=== PATIENT | male | born 1955 | race African-American/Black ===

== ENCOUNTER 2019-03-12 23:36 | Inpatient (IN) | payer SELFPAY ==
[2019-03-13] MEDS ORDERED: Carvedilol 25 MG TAB PO SCH (00:30)
[2019-03-13] MEDS ORDERED: Acetaminophen 325 MG TAB ONE (02:08)
[2019-03-13 02:42] VITALS: BMI 29.1
[2019-03-13] MEDS ORDERED: Acetaminophen 325 MG TAB PO PRN (02:55)
[2019-03-13] MEDS ORDERED: Ondansetron PF 4 MG/2 ML Vial IVP PRN (02:55)
[2019-03-13] MEDS ORDERED: Ondansetron ODT 4 MG TAB SL PRN (02:55)
[2019-03-13 03:56] LABS: Troponin I 0.057 ng/mL (< 0.028)
--- NOTE | 2019-03-13 03:59 | HP ---
CHIEF COMPLAINT: Shortness of breath. PRIMARY CARE PHYSICIAN: [facility]. HISTORY OF PRESENT ILLNESS: The patient is a 63-year-old male with congestive heart failure, cirrhosis with ongoing alcohol abuse and medication noncompliance, presented to the emergency room at [place] with above complaints. He was transferred to this facility for hospital admission. Over the last 3-4 weeks, the patient has gradual worsening shortness of breath, mainly on mild to moderate exertion. His symptoms progressively got worse today. He was unable to lie down flat. He also noticed significant swelling in bilateral lower extremities. No chest pain, palpitations, lightheadedness, dizziness, or syncope reported. He also had some cough, which was essentially dry. He does not monitor his fluid intake. He also does not check his weight on a daily basis. The patient is currently out of all of his medications for more than a month or so. In the emergency room at [place], his initial vital signs showed temperature 98.3 respirations of 16, pulse rate of 119 with a blood pressure 133/96, and O2 saturation 94% on room air. He received aspirin with Lasix in the emergency room at [place] and was transferred to this facility. PAST MEDICAL HISTORY: 1. Hypertension. 2. Congestive heart failure, ejection fraction unknown. 3. Alcoholic cirrhosis. PAST SURGICAL HISTORY: Reviewed with the patient and none. ALLERGIES: NO KNOWN DRUG ALLERGIES. CURRENT HOME MEDICATIONS: The patient is out of all of his medications for a month. SOCIAL HISTORY: The patient drinks a mild amount of alcohol on a daily basis per the patient report. He is trying to quit drinking. No smoking or drug use. FAMILY HISTORY: Mother with heart disease. Sister with bladder cancer. REVIEW OF SYSTEMS: All other review of systems were reviewed and were found negative. PHYSICAL EXAMINATION: VITAL SIGNS: As discussed above. GENERAL: The patient in mild respiratory distress. HEENT: Head, atraumatic and normocephalic. Sclerae anicteric. Moist mucous membranes. No oral lesion. NECK: Supple. JVD elevated. No carotid bruit. LUNGS: Showed bibasilar rales with accessory muscle use. No significant wheezing noted. Lungs were symmetrical. HEART: S1, S2 present. Regular rate and rhythm. 2/6 systolic murmur over the mitral area as well as left lateral sternal border. No heaves or pulsation. ABDOMEN: Distended, soft. Bowel sounds present. Questionable shifting dullness. EXTREMITIES: 2 to 3+ edema in bilateral lower extremities. SKIN: Warm and dry. LYMPH NODES: No palpable lymph nodes in the neck. PERIPHERAL VASCULAR: Radial pulses palpable bilaterally. MUSCULOSKELETAL: No joint swelling or tenderness. SKIN: Warm and dry. LABORATORY FINDINGS: CBC showed WBC 5.1 with hemoglobin 13.4, hematocrit 44.2, platelets 250. PT of 16.4, INR 1.3. D-dimer was 2.83. Chemistry showed sodium 140, potassium 3.5, chloride 103, bicarb 24, BUN 11, creatinine 1.12. Troponin 0.039. BNP 1041. Plasma alcohol was 15. EKG by my review showed sinus rhythm with nonspecific ST-T wave changes. CT angiogram of the chest by my review showed small bilateral pleural effusion without any evidence of pulmonary embolism. There was pulmonary edema with cardiomegaly. IMPRESSION: 1. Acute on chronic congestive heart failure exacerbation/pulmonary edema, ACC stage C. 2. Medication noncompliance. 3. Alcoholic cirrhosis. 4. Hypertension. 5. Chronic alcoholism. 6. Chronic kidney disease, stage 2. 7. Type 2 myocardial infarction. 8. Abnormal LFTs secondary to cirrhosis/passive hepatic congestion. 9. Elevated D-dimer with negative CT angiogram of the chest for pulmonary embolism. PLAN: The patient will be monitored on the telemetry unit. The patient will require 2 to 3 days for stabilization given the extent of volume overload. We will add fluid restriction. IV diuretics. We will add thiamine, folic acid, multivitamin. We will resume beta blockers. Start potassium supplementation. The patient was extensively counseled to quit drinking. Multivitamin, thiamine, and folic acid will be added. Labs on a daily basis. Echocardiogram will be obtained. Plan of care was discussed with the patient in detail. He stated understanding. Job ID: [id number]
[2019-03-13] MEDS: Furosemide 40 MG/4 ML VIAL SLOW IVP SCH ×2 (06:00→14:20)
--- NOTE | 2019-03-13 07:39 | CT ---
PRELIMINARY REPORT/[facility]/EMERGENCY AFTER HOURS PROCEDURE: EXAM: CT Angiography Chest With Contrast EXAM DATE/TIME: 03/13/2019 12:31 AM CLINICAL HISTORY: 63 years old, male; Dyspnea and shortness of breath; Patient HX: 63 y/o m, presents to eded for chf. PT was prompted to go to other ED for evaluation of worsening x 1 month of dyspnea, ble edema. He also notes abd distension. Denies cp TECHNIQUE: Imaging protocol: Axial computed tomographic angiography images of the chest with intravenous contras t using CT angiography protocol. 3D rendering: MIP reconstructed images were created and reviewed. COMPARISON: No relevant prior studies available. FINDINGS: Pulmonary arteries: No evidence of pulmonary embolism. Aorta: No acute findings. No aortic aneurysm or dissection. Lungs: Bilateral interlobular septal and peribronchial thickening likely represents pulmonary edema. Bibasilar atelectasis. Few scattered small pulmonary nodules for instance right upper lobe peripheral 5 mm nodule. Pleural space: Small right and trace left pleural effusions. No pneumothorax. Heart: Cardiomegaly. Coronary calcifications. No pericardial effusion. Reflux of contrast into the IV C and hepatic veins suggestive of heart strain. Mediastinum: Small hiatal hernia. Upper abdomen: Mild ascites. Lymph nodes: No significant adenopathy. Bones/joints: No acute fracture. Soft tissues: Body wall edema. IMPRESSION: No evidence of pulmonary embolism. Pulmonary edema. Small pleural effusions. No ascites. Cardiomegaly. Coronary calcifications. Other findings above. Thank you for allowing us to participate in the care of your patient. Dictated and Authenticated by: Lino Grider MD 03/13/2019 1:45 AM Central Time ([place] & [place]) FINAL REPORT CT PULMONARY ANGIOGRAM WITH IV CONTRAST AND 3-D POSTPROCESSING: I agree with the preliminary report given by Dr. Grider of [facility]. Transcribed Date/Time: 03/13/2019 7:53 AM
[2019-03-13] MEDS ORDERED: Sodium Chloride 0.65% Nasal 44 ML BOT EA NARE PRN (07:43)
[2019-03-13] MEDS ORDERED: Temazepam 15 MG CAP PO PRN (07:43)
[2019-03-13] MEDS ORDERED: Bisacodyl 10 MG SUPP PR PRN (07:43)
[2019-03-13] MEDS ORDERED: Loperamide HCl 2 MG CAP PO PRN (07:43)
[2019-03-13] MEDS ORDERED: Calcium Carbonate 500 MG ChewTAB PO PRN (07:43)
[2019-03-13] MEDS ORDERED: hydrALAZINE 20 MG/ML VIAL SLOW IVP PRN (07:43)
[2019-03-13] MEDS ORDERED: Artificial Tears 18 DROP/0.9 ML EA EYE PRN (07:43)
[2019-03-13] MEDS ORDERED: Loratadine 10 MG TAB PO PRN (07:43)
[2019-03-13] MEDS: Thiamine 100 MG TAB PO SCH (08:40)
[2019-03-13] MEDS: Magnesium Oxide 400 MG TAB PO SCH ×2 (08:40→20:41)
[2019-03-13] MEDS: Potassium Chloride 20 MEQ TAB PO SCH ×2 (08:40→16:37)
[2019-03-13] MEDS: Folic Acid 1 MG TAB PO SCH (08:40)
[2019-03-13] MEDS: Aspirin Chewable 81 MG TAB PO SCH (08:41)
[2019-03-13] MEDS: Senokot S 8.6-50 MG TAB PO SCH ×2 (08:41→20:46)
[2019-03-13] MEDS: Famotidine 20 MG TAB PO SCH ×2 (08:41→20:41)
[2019-03-13] MEDS: Multivit, Therapeutic 1 TAB PO SCH (08:41)
[2019-03-13] MEDS ORDERED: Lisinopril 2.5 MG TAB PO SCH (09:00)
[2019-03-13] MEDS ORDERED: Carvedilol 6.25 MG TAB PO SCH ×2 (09:00)
[2019-03-13] MEDS ORDERED: ISOVUE-370 76%-LOCM 1 ML ONE (11:12)
[2019-03-13 12:36] LABS: Anion Gap 13 mmol/L (10-20); BUN (Urea Nitrogen) 11 mg/dL (8.4-25.7); Calc. Creatinine Clearance 106 mL/min (70-130); Calcium 8.8 mg/dL (7.8-10.44); Carbon Dioxide 24 mmol/L (23-31); Chloride 106 mmol/L (98-107); Estimated GFR-MDRD 82; Glucose 116 mg/dL (80-115); Magnesium 1.9 mg/dL (1.6-2.6); Sodium 139 mmol/L (136-145)
--- NOTE | 2019-03-13 14:04 | PDOC.EVN ---
Event Note - Event Note Event Note: Pt seen & examined.feels dizzy Care discussed w RN at bedside. BP low after receiving lasix this am will hold lasix for now and DC Lisinopril.Put Hold parameters on coreg as well Add ASE protocol. cont Thiamine/FA supplementation ECHO pending to assess cardiac Fx High risk of Alcohol withdrawal. AM labs. ETOH counselling done. discussed w family at bedside
[2019-03-13] MEDS: Carvedilol 6.25 MG TAB PO SCH (20:47)
[2019-03-13] MEDS: Diabetic Tussin 200 MG/10 ML UDCUP PO PRN (22:50)
[2019-03-14 06:46] LABS: ALT (SGPT) 17 U/L (8-55); AST (SGOT) 26 U/L (5-34); Albumin 2.9 g/dL (3.4-4.8); Alkaline Phosphatase 107 U/L (40-150); Bilirubin, Direct 0.9 mg/dL (0.1-0.3); Bilirubin, Total 1.7 mg/dL (0.2-1.2); Phosphorus 3.3 mg/dL (2.3-4.7); Protein, Total 6.4 g/dL (5.8-8.1)
[2019-03-14 06:48] LABS: Anion Gap 13 mmol/L (10-20); BUN (Urea Nitrogen) 12 mg/dL (8.4-25.7); Calc. Creatinine Clearance 110 mL/min (70-130); Calcium 8.6 mg/dL (7.8-10.44); Carbon Dioxide 23 mmol/L (23-31); Chloride 106 mmol/L (98-107); Estimated GFR-MDRD 87; Glucose 79 mg/dL (80-115); Magnesium 1.8 mg/dL (1.6-2.6); Sodium 138 mmol/L (136-145); Uric Acid 8.5 mg/dL (3.5-7.2)
[2019-03-14] MEDS: Potassium Chloride 20 MEQ TAB PO SCH ×2 (07:47→16:25)
[2019-03-14] MEDS: Aspirin Chewable 81 MG TAB PO SCH (09:50)
[2019-03-14] MEDS: Carvedilol 6.25 MG TAB PO SCH (09:50)
[2019-03-14] MEDS: Thiamine 100 MG TAB PO SCH (09:50)
[2019-03-14] MEDS: Famotidine 20 MG TAB PO SCH ×2 (09:50→21:01)
[2019-03-14] MEDS: Folic Acid 1 MG TAB PO SCH (09:50)
[2019-03-14] MEDS: Magnesium Oxide 400 MG TAB PO SCH ×2 (09:50→21:01)
[2019-03-14] MEDS: Multivit, Therapeutic 1 TAB PO SCH (09:50)
[2019-03-14] MEDS: Senokot S 8.6-50 MG TAB PO SCH ×2 (09:51→21:00)
[2019-03-14] MEDS ORDERED: Lorazepam 2 MG/ML VIAL SLOW IVP PRN (10:46)
--- NOTE | 2019-03-14 10:46 | PDOC.PN ---
- Subjective Encounter Start Date: 03/14/19 Encounter Start Time: 10:43 Patient seen and examined, complaining of SOB and dyspnea on exhertion. No other issues. - Objective Resuscitation Status - Order Detail: 03/13/19 03:45 Resuscitation Status Routine Resuscitation Status: FULL: Full Resuscitation Vital Signs & Weight: Vital Signs (12 hours) Temp Pulse Resp BP BP Pulse Ox 03/14/19 09:50 111/81 03/14/19 08:30 94 L 03/14/19 08:00 115/76 115/76 03/14/19 07:38 97.8 F 84 16 115/84 100 03/14/19 07:33 94 L 03/14/19 04:00 97.7 F 89 16 104/73 95 03/14/19 03:27 104/73 03/14/19 00:07 111/79 03/14/19 00:00 97.7 F 90 16 111/79 96 Weight Weight 232 lb 11.2 oz I&O: 03/13/19 03/14/19 03/15/19 06:59 06:59 06:59 Intake Total 240 960 140 Output Total 1550 Balance 240 -590 140 Result Diagrams: 03/14/19 06:07 Phys Exam - Physical Examination Constitutional: NAD HEENT: PERRLA, moist MMs, sclera anicteric Neck: no nodes, no JVD, supple Respiratory: no wheezing, no rales, no rhonchi Cardiovascular: RRR, no significant murmur, no rub Gastrointestinal: soft, non-tender, no distention Musculoskeletal: pulses present, edema present Dx/Plan (1) Systolic CHF Code(s): I50.20 - UNSPECIFIED SYSTOLIC (CONGESTIVE) HEART FAILURE Status: Acute (2) Acute on chronic congestive heart failure Code(s): I50.9 - HEART FAILURE, UNSPECIFIED Status: Acute Comment: ACC/AHA stage C, suspecting diastolic (3) Alcoholic cirrhosis of liver Code(s): K70.30 - ALCOHOLIC CIRRHOSIS OF LIVER WITHOUT ASCITES Status: Chronic (4) Alcoholism /alcohol abuse Code(s): F10.20 - ALCOHOL DEPENDENCE, UNCOMPLICATED Status: Chronic (5) Nonadherence to medication Code(s): Z91.14 - PATIENT'S OTHER NONCOMPLIANCE WITH MEDICATION REGIMEN Status : Chronic - Plan * worsening edema and SOB subjectively, patint appears stable now, able to tolerate room air and oxygenating well * will consult cardio, EF 10-15%, very low, likely from CHF due to chronic alcoholic cardiomyopathy * patient continues to drink heavily, last drink was 4 days ago, not showing signs of withdrawals, will monitor for now, PRN ativan if he does have withdrawals * will avoid aggressive IVFs given such poor cardiac function * monitor for now, will await cardio input * no other changes in plan of care * prognosis poor * case and plan d/w patient at length, he understood and agreed with this plan.
[2019-03-14] MEDS ORDERED: Furosemide 20 MG/2 ML VIAL SLOW IVP SCH ×2 (14:45→18:30)
--- NOTE | 2019-03-14 15:13 | CON ---
DATE OF CONSULTATION: 03/14/2019 REASON FOR CONSULTATION: New-onset cardiomyopathy. HISTORY OF PRESENT ILLNESS: Mr. Mckeon is a 63-year-old gentleman, who comes to the hospital for shortness of breath. He states for the last 4 to 5 days, he has been so short of breath he cannot drink his alcohol any more. He is normally drinking about 12 cans of beers a day, but he had to stop 4 days ago as he was so bloated. He has been told he has cirrhosis in the past. He does not remember being told that he had a weak heart, but he knows that he was admitted in the [facility] where he used to live and was told he had issues with his heart, but he cannot really elaborate. He states that he moved to the [facility] about 4 to 5 years ago and has not seen a doctor since. He works for home health. Currently, he is feeling a little bit better. He is breathing a little more comfortable. His legs swelling has decreased after given some doses of IV Lasix. PAST MEDICAL HISTORY: 1. Hypertension. 2. History of congestive heart failure of unknown type. 3. Alcoholic cirrhosis. PAST SURGICAL HISTORY: None. OUTPATIENT MEDICATIONS: None. ALLERGIES: NO KNOWN DRUG ALLERGIES. SOCIAL HISTORY: Drinks about 12 cans of beer every day. No tobacco or drugs. FAMILY HISTORY: Mother with heart disease. Sister with bladder cancer. REVIEW OF SYSTEMS: A 12-point review of systems was done and was all negative unless stated in the history of present illness. PHYSICAL EXAMINATION: VITAL SIGNS: Temperature 97.6, pulse 89, respiratory rate 15, saturations 96% on room air, and blood pressure 103/75. GENERAL: Awake, alert, oriented x3. No distress. HEENT: Normocephalic, atraumatic. NECK: Supple. LUNGS: Clear. CARDIOVASCULAR: S1 and S2. No S3 or S4. There is a grade 2/6 systolic murmur at the right upper sternal border. ABDOMEN: Positive with ascitic wave. EXTREMITIES: 1+ edema. SKIN: Warm and dry. LABORATORY DATA: Laboratory work was reviewed, it shows CBC with a white count of 5, hemoglobin of 13, hematocrit 44, platelet count of 250. Coags were unremarkable. Chemistries were unremarkable except for uric acid of 8.5, glucose was 79. Troponin is in the indeterminate range at 0.03, 0.05, and 0.03. BNP was 1041. Total bilirubin was 1.3, direct bilirubin was 0.9, and total bilirubin has increased to 1.5. Albumin of 2.9. Plasma alcohol was 15. He states he has last drink 4 days before admission. Echocardiogram was reviewed, it showed an EF of 10% to 15%, grade 3/3 diastolic dysfunction, biatrial enlargement [id number] mitral regurgitation, severe tricuspid regurgitation, large pleural effusion. CT of the chest was reviewed. Chest x-ray was reviewed. ASSESSMENT: 1. Acute on chronic systolic heart failure. 2. Alcohol abuse. 3. Noncompliance. PLAN: 1. Most likely the reason for his cardiomyopathy is alcohol use. He does have coronary calcifications on CT and may need a heart catheterization in the near future. However, at this time, he is unable to lay flat because of the amount of fluid still inside his belly. We will plan on continuing IV diuresis at current dose. He is slowly improving. 2. Counseled on alcohol cessation. He states he is trying to quit. 3. Once better diuresed and if blood pressure and heart rate allow, we will start beta-nkechi and PRASANTH inhibitors. Currently, his blood pressure is borderline low. He is already on Coreg 3.125, but this is being held more often than not given low blood pressure. Thank you for letting me to participate in the care of your patient. We will continue to follow. Job ID: [id number]
[2019-03-14] MEDS: DOBUTamine 500 mg/250 ml 250 ML IVPB SCH (17:14)
[2019-03-15] MEDS: Furosemide 40 MG/4 ML VIAL SLOW IVP SCH ×2 (06:32→13:20)
[2019-03-15 07:08] LABS: Anion Gap 11 mmol/L (10-20); BUN (Urea Nitrogen) 13 mg/dL (8.4-25.7); Calc. Creatinine Clearance 112 mL/min (70-130); Calcium 8.7 mg/dL (7.8-10.44); Carbon Dioxide 25 mmol/L (23-31); Chloride 106 mmol/L (98-107); Estimated GFR-MDRD Greater than 90; Glucose 80 mg/dL (80-115); Magnesium 1.7 mg/dL (1.6-2.6); Potassium 3.9 mmol/L (3.5-5.1); Sodium 138 mmol/L (136-145)
[2019-03-15] MEDS: Famotidine 20 MG TAB PO SCH ×2 (08:26→20:31)
[2019-03-15] MEDS: Senokot S 8.6-50 MG TAB PO SCH ×2 (08:26→20:31)
[2019-03-15] MEDS: Aspirin Chewable 81 MG TAB PO SCH (08:26)
[2019-03-15] MEDS: Folic Acid 1 MG TAB PO SCH (08:26)
[2019-03-15] MEDS: Multivit, Therapeutic 1 TAB PO SCH (08:26)
[2019-03-15] MEDS: Potassium Chloride 20 MEQ TAB PO SCH ×2 (08:26→20:31)
[2019-03-15] MEDS: Magnesium Oxide 400 MG TAB PO SCH ×2 (08:26→20:31)
[2019-03-15] MEDS: Thiamine 100 MG TAB PO SCH (08:27)
[2019-03-15] MEDS: DOBUTamine 500 mg/250 ml 250 ML IVPB SCH (08:29)
--- NOTE | 2019-03-15 13:56 | PRG ---
DATE OF SERVICE: 03/15/2019 SUBJECTIVE: The patient is seen and examined at the bedside. He states that he is feeling much better. He is able to eat. His shortness of breath improved and the swelling of his lower extremities improved too according to him. OBJECTIVE: VITAL SIGNS: Blood pressure is 123/78, pulse is 96, respirations 18, O2 saturation is 99% on room air, temperature is 97.7. HEENT: His head is atraumatic and normocephalic. Eyes are PERRLA. Sclerae are slightly icteric. Oral mucosa is moist. NECK: Supple. LUNGS: Breath sounds diminished at both bases with bilateral crackles at both bases. No wheezing. No rales. HEART: S1 and S2, somewhat distant. No S3. No S4. ABDOMEN: Soft. Somewhat distended with some fluid present. No organomegaly. EXTREMITIES: 2+ peripheral edema, similar bilaterally on both lower extremities. NEUROLOGIC: He follows my commands. He moves his all 4 extremities. There are no any motor deficits. LABORATORY DATA: Normal chemistry. Magnesium 1.7. Echocardiogram showed severe LV dysfunction with EF estimated at 10% to 15%, grade 3/3 diastolic dysfunction, global hypokinesia, moderately dilated left atrium, moderately enlarged right atrium, [id number] mitral regurgitation, severe tricuspid regurgitation, and pleural effusion. IMPRESSION: 1. Combined systolic and diastolic congestive heart failure with left ventricular ejection fraction estimated at 10% to 15%. 2. Alcoholic liver cirrhosis. 3. Alcoholism. 4. Noncompliance. The patient has seen a physician long time ago. DISCUSSION: The patient is receiving dobutamine drip. I will do ultrasound of his abdomen for ascites and tap him if he has enough fluid to be tapped, so Dr. Benitez can do cardiac catheterization on him to rule out ischemic heart disease. At this point, the diagnosis is alcoholic heart disease until proven otherwise. We will continue his Lasix IV push 40 mg twice a day and p.r.n. Ativan for his alcohol withdrawal syndromes. He stopped drinking approximately 4 to 5 days ago, so he is in increased risk for that was canceled on his alcoholism and he states that he has done with alcohol since he got somewhat damage on his heart. Continue DVT prophylaxis. Job ID: [id number]
--- NOTE | 2019-03-15 15:14 | PDOC.CTH ---
Cardiology Progress Note - Subjective Doing better. Urinating better with dobutamine. - Objective Vital Signs Temp Pulse Pulse Pulse Resp BP BP 03/15/19 12:18 107 H 102 H 134/82 03/15/19 11:51 97.7 F 96 18 03/15/19 08:00 98.1 F 99 18 126/64 03/15/19 04:00 138/81 BP BP Pulse Ox 03/15/19 12:18 98/62 03/15/19 11:51 123/78 99 03/15/19 08:00 110/75 98 03/15/19 04:00 Weight 221 lb 12.8 oz 03/14/19 03/15/19 03/16/19 06:59 06:59 06:59 Intake Total 960 1545 580 Output Total 1550 975 Balance -590 570 580 - Physical Examination General/Neuro: alert & oriented x3, NAD Neck: no JVD present Lungs: unlabored respirations Heart: RRR Abdomen: NT/ND Extremities: + edema B (trace) - Telemetry Telemetry Rhythm: NSR - Labs Result Diagrams: 03/15/19 06:26 Troponin/CKMB Troponin I 0.057 ng/mL (< 0.028) H 03/13/19 03:25 - Assessment/Plan 1. New onset dilated CM. EF at 10-15% 2. Alcohol abuse 3. Non compliance. 4. Coronary calcifications on CT. PLAN: - Continue dobutamine and lasix for diuresis. - Will need [facility] before discharge once he is able to lay flat.
[2019-03-16] MEDS: DOBUTamine 500 mg/250 ml 250 ML IVPB SCH ×2 (00:34→18:19)
[2019-03-16] MEDS: Furosemide 40 MG/4 ML VIAL SLOW IVP SCH ×2 (05:10→15:11)
[2019-03-16 05:14] LABS: Anion Gap 12 mmol/L (10-20); BUN (Urea Nitrogen) 13 mg/dL (8.4-25.7); Calc. Creatinine Clearance 107 mL/min (70-130); Calcium 8.3 mg/dL (7.8-10.44); Carbon Dioxide 26 mmol/L (23-31); Chloride 105 mmol/L (98-107); Estimated GFR-MDRD 89; Glucose 84 mg/dL (80-115); Magnesium 1.7 mg/dL (1.6-2.6); Potassium 3.7 mmol/L (3.5-5.1); Sodium 139 mmol/L (136-145)
--- NOTE | 2019-03-16 07:23 | ULT ---
COMPLETE ABDOMEN ULTRASOUND: Date: 03/16/19 INDICATION: History of liver cirrhosis. COMPARISON: None. FINDINGS: The liver does have increased echogenicity with a nodular contour consistent with changes of chronic liver disease. No focal hepatic lesion is evident. There is mild gallbladder wall thickening and lilly cholecystic edema which may be related to patient's history of cirrhosis. No sonographic Monge's sig n is reported. Common bile duct measures 4 mm. There is appropriate hepatopetal flow within the portal vein. Focal flow is seen in the hepatic veins . Pancreas is largely obscured. Visualized proximal aorta and IVC are within normal limits. The splee n measures 10.3 cm. The right kidney measures 12.6 x 5.1 x 6.7 cm. The left kidney measures 12.5 x 6.2 x 4.8 cm. There is mild ascites seen around the right hepatic lobe. IMPRESSION: 1. Findings of cirrhosis and mild ascites. 2. Mild gallbladder wall thickening and pericholecystic edema, may be related to lymphedema from the patient's chronic liver disease. No sonographic Monge's sign is seen to suggest the presence of acu te acalculous cholecystitis. 3. Some limitations to exam as above. POS: BRANDI
[2019-03-16] MEDS: Senokot S 8.6-50 MG TAB PO SCH ×2 (08:30→20:36)
[2019-03-16] MEDS: Multivit, Therapeutic 1 TAB PO SCH (08:30)
[2019-03-16] MEDS: Potassium Chloride 20 MEQ TAB PO SCH ×2 (08:30→18:20)
[2019-03-16] MEDS: Aspirin Chewable 81 MG TAB PO SCH (08:30)
[2019-03-16] MEDS: Folic Acid 1 MG TAB PO SCH (08:31)
[2019-03-16] MEDS: Thiamine 100 MG TAB PO SCH (08:31)
[2019-03-16] MEDS: Magnesium Oxide 400 MG TAB PO SCH ×2 (08:31→20:36)
[2019-03-16] MEDS: Famotidine 20 MG TAB PO SCH ×2 (08:31→20:36)
--- NOTE | 2019-03-16 13:57 | PRG ---
DATE OF SERVICE: 03/16/2019 SUBJECTIVE: The patient is seen and examined at the bedside. He is improving in terms of his shortness of breath and being tired. His appetite is fair. OBJECTIVE: VITAL SIGNS: Blood pressure is 114/73, pulse is 99, temperature is 97.9, respirations 18, and O2 saturation is 98% on room air. HEENT: His head is atraumatic and normocephalic. Eyes are PERRLA. Sclerae are slightly icteric. Conjunctivae somewhat palish. Oral mucosa is moist. NECK: Supple. LUNGS: Breath sounds diminished at both bases with some bilateral crackles. HEART: S1 and S2, somewhat distant. S4 present. ABDOMEN: Soft. Mildly distended with small amount of fluid. No guarding. No masses. EXTREMITIES: 1 to 2+ peripheral edema similar bilaterally on both lower extremities. NEUROLOGIC: He is alert and oriented x4. There are no any motor deficits. LABORATORY DATA: Labs showed normal chemistry. IMAGING STUDIES: Ultrasound of the abdomen showed small amount of ascites along with findings of liver cirrhosis and mild gallbladder wall thickening and pericholecystic edema, most likely related to lymphedema from the patient's chronic liver disease. IMPRESSION: 1. Combined systolic and diastolic congestive heart failure with left ventricular ejection fraction estimated at 10% to 15% on the current echocardiogram. 2. Alcoholic liver cirrhosis. 3. Alcoholism. 4. Noncompliance. 5. Small ascites. DISCUSSION: The patient is continuing his dobutamine drip. He is improving daily. He needs more diuresis before he gets cardiac catheterization. Dr. Benitez will make decision when cardiac cath is going to be done. We will keep checking his chemistry and continue his thiamine and magnesium along with potassium supplementation. Job ID: [id number]
--- NOTE | 2019-03-16 18:35 | PDOC.CTH ---
Cardiology Progress Note - Subjective No new issues. No chest pain, still unable to lay flat. - Objective Vital Signs Temp Pulse Resp BP BP Pulse Ox 03/16/19 16:00 97.9 F 103 H 18 103/79 96 03/16/19 12:00 97.9 F 99 18 114/73 98 03/16/19 08:00 97.9 F 101 H 18 126/76 99 Weight 224 lb 12.8 oz 03/15/19 03/16/19 03/17/19 06:59 06:59 06:59 Intake Total 1545 1031.2 820 Output Total 975 2550 2400 Balance 570 -1518.8 -1580 - Physical Examination General/Neuro: alert & oriented x3, NAD Neck: no JVD present Lungs: CTA, unlabored respirations Heart: RRR Abdomen: NT/ND Extremities: other: (no edema) - Telemetry Telemetry Rhythm: NSR - Labs Result Diagrams: 03/16/19 04:30 Troponin/CKMB Troponin I 0.057 ng/mL (< 0.028) H 03/13/19 03:25 - Assessment/Plan 1. New onset dilated CM. EF at 10-15% 2. Alcohol abuse 3. Non compliance. 4. Coronary calcifications on CT. 5. Non sustained VT PLAN: - Continue dobutamine and lasix for diuresis. - Not able to lay flat yet, likely [facility] Saturday.
[2019-03-17] MEDS: Furosemide 40 MG/4 ML VIAL SLOW IVP SCH ×2 (05:45→14:22)
[2019-03-17 07:12] LABS: Anion Gap 12 mmol/L (10-20); BUN (Urea Nitrogen) 11 mg/dL (8.4-25.7); Calc. Creatinine Clearance 102 mL/min (70-130); Calcium 8.6 mg/dL (7.8-10.44); Carbon Dioxide 26 mmol/L (23-31); Chloride 105 mmol/L (98-107); Estimated GFR-MDRD 84; Glucose 73 mg/dL (80-115); Sodium 139 mmol/L (136-145)
[2019-03-17] MEDS: Famotidine 20 MG TAB PO SCH ×2 (08:55→21:18)
[2019-03-17] MEDS: Potassium Chloride 20 MEQ TAB PO SCH ×2 (08:55→17:37)
[2019-03-17] MEDS: Multivit, Therapeutic 1 TAB PO SCH (08:55)
[2019-03-17] MEDS: Aspirin Chewable 81 MG TAB PO SCH (08:55)
[2019-03-17] MEDS: Senokot S 8.6-50 MG TAB PO SCH ×2 (08:55→21:18)
[2019-03-17] MEDS: Thiamine 100 MG TAB PO SCH (08:55)
[2019-03-17] MEDS: Magnesium Oxide 400 MG TAB PO SCH ×2 (08:55→21:18)
[2019-03-17] MEDS: Folic Acid 1 MG TAB PO SCH (08:57)
[2019-03-17] MEDS: DOBUTamine 500 mg/250 ml 250 ML IVPB SCH (13:11)
--- NOTE | 2019-03-17 13:50 | PRG ---
DATE OF SERVICE: 03/17/2019 SUBJECTIVE: The patient is seen and examined at the bedside. He is feeling better every day. He is able to ambulate. His appetite is fair. OBJECTIVE: VITAL SIGNS: Blood pressure is 119/85, pulse is 105, temperature is 98, respiratory rate is 18, O2 saturation is 95% on room air. HEENT: His head is atraumatic and normocephalic. Eyes are PERRLA. Sclerae are slightly yellowish. Conjunctivae are pinkish. Oral mucosa is moist. NECK: Supple. LUNGS: Breath sounds are diminished at both bases with few crackles bilaterally at both bases. HEART: S1 and S2, somewhat distant. No S3. No S4. ABDOMEN: Soft and nontender. Mild ascites present. No organomegaly. Bowel sounds are present. EXTREMITIES: 1 to 1.5 peripheral edema on both lower extremities. NEUROLOGIC: He follows my commands. He moves his all 4 extremities. His speech is normal. LABORATORY DATA: Showed normal electrolytes, normal creatinine, and glucose of 73 with calcium of 8.6. His input and output; he has good urine output. His weight is down by 11 pounds since the time of admission. IMPRESSION: 1. Cardiomyopathy with left ventricular ejection fraction of 10% to 15%, most likely related to alcohol abuse. 2. Liver cirrhosis. 3. Alcoholism. 4. Noncompliance. 5. Nonsustained ventricular tachycardia. 6. Small ascites. PLAN: He is going to be taken for cardiac catheterization tomorrow morning by Dr. Benitez. For now, we will continue his regimen with dobutamine, and he seems to be doing quite well. Job ID: [id number]
--- NOTE | 2019-03-17 18:55 | PDOC.CTH ---
Cardiology Progress Note - Subjective Able to lay flat now. Feeling better. - Objective Vital Signs Temp Pulse Pulse Pulse Resp BP BP 03/17/19 15:46 97.8 F 105 H 18 03/17/19 11:23 98 F 105 H 18 119/85 03/17/19 11:22 119 H 107 H 135/75 03/17/19 07:57 98.4 F 97 20 BP BP BP Pulse Ox Pulse Ox 03/17/19 15:46 111/69 96 03/17/19 11:23 119/85 95 03/17/19 11:22 119/85 95 03/17/19 07:57 116/78 96 Weight 222 lb 4.8 oz 03/16/19 03/17/19 03/18/19 06:59 06:59 06:59 Intake Total 1031.2 1206 429.6 Output Total 2550 2750 3050 Balance -1518.8 -1542 -1670.4 - Physical Examination General/Neuro: alert & oriented x3, NAD Neck: no JVD present Lungs: CTA, unlabored respirations Heart: RRR Abdomen: NT/ND Extremities: other: (no edema) - Telemetry Telemetry Rhythm: NSR - Labs Result Diagrams: 03/17/19 05:59 Troponin/CKMB Troponin I 0.057 ng/mL (< 0.028) H 03/13/19 03:25 - Assessment/Plan 1. New onset dilated CM. EF at 10-15% 2. Alcohol abuse 3. Non compliance. 4. Coronary calcifications on CT. 5. Non sustained VT PLAN: - Continue dobutamine. - We spoke about [facility] and he agrees to proceed. Will schedule for tomorrow morning. We spoke about risks and benefits, risks include but not limited to stroke, [place], , bleeding and need for transfusions, limb loss, organ loss, need for emergent CABG. He understands and verbalizes understanding and agrees to proceed.
[2019-03-17] MEDS ORDERED: Communication Order-Pharmacy FS SCH (19:00)
[2019-03-18] MEDS ORDERED: Amiodarone 450 MG in Dextrose 5% in Water 250 ML IVPB SCH (02:15)
[2019-03-18 03:50] LABS: Anion Gap 12 mmol/L (10-20); BUN (Urea Nitrogen) 13 mg/dL (8.4-25.7); Calc. Creatinine Clearance 90 mL/min (70-130); Calcium 9.2 mg/dL (7.8-10.44); Carbon Dioxide 28 mmol/L (23-31); Chloride 103 mmol/L (98-107); Estimated GFR-MDRD 73; Glucose 90 mg/dL (80-115); Magnesium 1.9 mg/dL (1.6-2.6); Potassium 4.3 mmol/L (3.5-5.1); Sodium 139 mmol/L (136-145)
[2019-03-18 03:51] LABS: ALT (SGPT) 13 U/L (8-55); AST (SGOT) 23 U/L (5-34); Albumin 2.9 g/dL (3.4-4.8); Alkaline Phosphatase 106 U/L (40-150); Bilirubin, Direct 1.1 mg/dL (0.1-0.3); Protein, Total 6.5 g/dL (5.8-8.1)
[2019-03-18] MEDS: DOBUTamine 500 mg/250 ml 250 ML IVPB SCH (05:43)
[2019-03-18] MEDS: Potassium Chloride 20 MEQ TAB PO SCH ×2 (05:59→16:18)
[2019-03-18] MEDS: Thiamine 100 MG TAB PO SCH (05:59)
[2019-03-18] MEDS: Senokot S 8.6-50 MG TAB PO SCH ×2 (05:59→22:12)
[2019-03-18] MEDS: Famotidine 20 MG TAB PO SCH ×2 (05:59→22:12)
[2019-03-18] MEDS: Folic Acid 1 MG TAB PO SCH (05:59)
[2019-03-18] MEDS: Aspirin Chewable 81 MG TAB PO SCH (06:00)
[2019-03-18] MEDS: Magnesium Oxide 400 MG TAB PO SCH ×2 (06:00→22:12)
[2019-03-18] MEDS: Multivit, Therapeutic 1 TAB PO SCH (06:01)
[2019-03-18] MEDS ORDERED: Lidocaine 1% (PF) 30 ML VIAL ONE (06:36)
[2019-03-18] MEDS ORDERED: Fentanyl 100 MCG/2 ML VIAL ONE (07:43)
[2019-03-18] MEDS ORDERED: Midazolam HCl 2 mg/2 ml Vial ONE (07:43)
[2019-03-18] MEDS ORDERED: Sodium Chloride 0.9% 200 ML IV PRN (08:17)
[2019-03-18] MEDS ORDERED: Acetaminophen/Codeine 30-300mg Tablet PO PRN (08:17)
[2019-03-18] MEDS ORDERED: Nitroglycerin 0.4 MG TAB (25 Tab Bottle) SL PRN (08:17)
[2019-03-18] MEDS ORDERED: Sodium Chloride 0.9% 1,000 ML IV SCH (08:30)
[2019-03-18] MEDS ORDERED: Iopamidol 370 76% 100 ML VIAL ONE (09:00)
[2019-03-18] MEDS ORDERED: DOBUTamine 500 mg/250 ml 250 ML IVPB SCH (11:00)
--- NOTE | 2019-03-18 16:41 | PRG ---
DATE OF SERVICE: 03/18/2019 SUBJECTIVE: The patient is seen and examined at the bedside. He just came back from the labor economics teacher. He does not have any complaints to offer. OBJECTIVE: VITAL SIGNS: Blood pressure is 107/75, pulse is 95, temperature 97.5, respiratory rate is 18, and O2 saturation is 97 on room air. HEENT: Head is atraumatic and normocephalic. Eyes are PERRLA. Sclerae are nonicteric. Oral mucosa is moist. NECK: Supple. LUNGS: Breath sounds diminished at both bases, with few crackles bilaterally. HEART: S1 and S2 distant. No S3. No S4. ABDOMEN: Soft, nontender, nondistended. EXTREMITIES: 1+ peripheral edema, similar bilaterally. NEUROLOGIC: He does not have any motor deficits. He moves his all 4 extremities. He is alert and oriented x4. LABORATORY DATA: Showed glucose 98. Total bilirubin 2.0 and direct bilirubin 1.1. LFTs within normal limits. TSH of 5.02. Normal chemistry. IMPRESSION: 1. Cardiomyopathy with LVEF of 10% to 15%, most likely related to alcohol abuse. Normal cardiac catheterization without any coronary artery disease. 2. Liver cirrhosis. 3. Alcoholism. 4. Noncompliance. 5. Nonsustained ventricular tachycardia. 6. Small ascites. DISCUSSION: At this point, he is improved to the point that most likely he will be discharged in the next 24 hours. We will continue his current regimen with aspirin, potassium, thiamine, and we will follow further recommendation from Cardiology. Job ID: [id number]
--- NOTE | 2019-03-18 17:27 | PDOC.CTH ---
Cardiology Progress Note - Subjective Had his C earlier today and it showed no significant CAD. - Objective Vital Signs Temp Pulse Pulse Pulse Resp BP BP 03/18/19 16:30 99 92 126/83 03/18/19 15:25 97.5 F L 95 18 103/74 03/18/19 12:30 97.6 F 89 18 107/85 03/18/19 08:50 03/18/19 08:45 97.5 F L 95 18 107/75 BP BP BP Pulse Ox 03/18/19 16:30 124/83 03/18/19 15:25 103/74 100 03/18/19 12:30 107/85 98 03/18/19 08:50 98 03/18/19 08:45 107/75 96 Weight 213 lb 03/17/19 03/18/19 03/19/19 06:59 06:59 06:59 Intake Total 1206 1072.6 Output Total 2750 3650 Balance -9738 -2310.4 - Physical Examination General/Neuro: alert & oriented x3, NAD Neck: no JVD present Lungs: unlabored respirations Heart: RRR Abdomen: NT/ND Extremities: other: (no edema) - Telemetry Telemetry Rhythm: NSR - Labs Result Diagrams: 03/18/19 03:22 Troponin/CKMB Troponin I 0.057 ng/mL (< 0.028) H 03/13/19 03:25 - Assessment/Plan 1. Non ischemic dilated CM. EF at 10-15% 2. Alcohol abuse 3. Non compliance. 4. Coronary calcifications on CT but not flow limiting on [facility] today. 5. Non sustained VT PLAN: - PO lasix at 40 mg daily - Start low dose Coreg. - Home is BP stays normal on current meds off dobutamine
[2019-03-18] MEDS: Cepastat Lozenges 1 LOZ PO PRN (22:12)
[2019-03-19 05:31] LABS: Anion Gap 12 mmol/L (10-20); BUN (Urea Nitrogen) 13 mg/dL (8.4-25.7); Calc. Creatinine Clearance 108 mL/min (70-130); Calcium 9.2 mg/dL (7.8-10.44); Carbon Dioxide 24 mmol/L (23-31); Chloride 105 mmol/L (98-107); Estimated GFR-MDRD Greater than 90; Glucose 82 mg/dL (80-115); Potassium 4.4 mmol/L (3.5-5.1); Sodium 137 mmol/L (136-145)
[2019-03-19] MEDS: Magnesium Oxide 400 MG TAB PO SCH ×2 (09:25→20:51)
[2019-03-19] MEDS: Potassium Chloride 20 MEQ TAB PO SCH ×2 (09:25→16:57)
[2019-03-19] MEDS: Carvedilol 3.125 MG TAB PO SCH ×2 (09:25→16:57)
[2019-03-19] MEDS: Folic Acid 1 MG TAB PO SCH (09:26)
[2019-03-19] MEDS: Aspirin Chewable 81 MG TAB PO SCH (09:26)
[2019-03-19] MEDS: Multivit, Therapeutic 1 TAB PO SCH (09:26)
[2019-03-19] MEDS: Famotidine 20 MG TAB PO SCH ×2 (09:26→20:51)
[2019-03-19] MEDS: Thiamine 100 MG TAB PO SCH (09:26)
[2019-03-19] MEDS: Senokot S 8.6-50 MG TAB PO SCH ×2 (09:26→20:51)
[2019-03-19] MEDS: Furosemide 40 MG TAB PO SCH (09:27)
--- NOTE | 2019-03-19 13:02 | PRG ---
DATE OF SERVICE: 03/19/2019 SUBJECTIVE: The patient is seen and examined at the bedside. He is feeling significantly better. He urinates less than before, but he still has quite significant urine output according to him. OBJECTIVE: VITAL SIGNS: Blood pressure is 111/84, pulse is 93, temperature is 97.7, respirations 15, O2 saturation is 98% on room air. HEENT: His head is atraumatic and normocephalic. Eyes are PERRLA. Sclerae are nonicteric. Oral mucosa is moist. NECK: Supple. LUNGS: Breath sounds diminished at both bases with bilateral crackles at both bases. No wheezing. HEART: S1 and S2 normal. S3 present, mostly audible at the left sternal border. Systolic murmur at the left sternal border 2/6. ABDOMEN: Soft, nontender. EXTREMITIES: peripheral edema similar bilaterally, somewhat improved from before. NEUROLOGIC: He is alert and oriented x4. There is no any motor or sensory deficits. LABORATORY DATA: Normal chemistry. IMPRESSION: 1. Cardiomyopathy with left ventricular ejection fraction of 10% to 15%, most likely alcohol-related with normal cardiac catheterization. 2. Liver cirrhosis. 3. Alcoholism. 4. Noncompliance. 5. Nonsustained ventricular tachycardia. 6. Small ascites, improved. DISCUSSION: The patient is improved. He is able to maintain his blood pressure above 100 systolic without dobutamine. He was started on a tiny dose of Coreg yesterday. If he maintains his blood pressure today and overnight, he can be discharged to home tomorrow on the same regimen, although the issue about LifeVest needs to be addressed with the Cardiology and we will talk to the covering team with Dr. Benitez regarding . Job ID: [id number]
--- NOTE | 2019-03-19 16:04 | PDOC.CTH ---
Cardiology Progress Note - Subjective The pt seen and examined. No overnight events. No cardiac complaints. - Objective Vital Signs Temp Pulse Pulse Pulse Resp BP BP 03/19/19 15:50 110/76 03/19/19 14:41 97.7 F 91 15 03/19/19 12:28 99 92 122/82 03/19/19 11:59 97.7 F 93 15 111/84 03/19/19 08:00 03/19/19 07:20 97.7 F 96 14 113/84 BP BP BP Pulse Ox 03/19/19 15:50 03/19/19 14:41 110/76 96 03/19/19 12:28 119/78 03/19/19 11:59 111/84 98 03/19/19 08:00 98 03/19/19 07:20 113/84 98 Weight 217 lb 03/18/19 03/19/19 03/20/19 06:59 06:59 06:59 Intake Total 1072.6 1200 Output Total 3650 775 Balance -2577.4 425 - Physical Examination General/Neuro: alert & oriented x3 Neck: no JVD present Lungs: CTA Heart: RRR Abdomen: soft Extremities: other: (2+ pitting BLE edema) - Telemetry Telemetry Rhythm: SR - Labs Result Diagrams: 03/19/19 04:34 Troponin/CKMB Troponin I 0.057 ng/mL (< 0.028) H 03/13/19 03:25 - Assessment/Plan 1. Non ischemic dilated ETOH induced CMYwith EF at 10-15% on 03/13/2019 - LifeVest at discharge 2. Acute on Chronic combined HF with EF 10-15% and grade III diastolic dysfunction on 03/17/2019 - stable with RA; on Coreg 3.125mg 1/2 tab BID and Lasix; not on PRASANTH/ARB for now due to hypotensive 3. Coronary calcifications on CT but not flow limiting on [facility] on 03/18/2019 4. Non sustained VT - normal coronary arteries with s/p LHC on 03/18/2019 5. ETOH abuse - ETOH cessation education given to the pt 6. Non compliance. MAR reviewed Pt. seen and eval. by me. I agree with the A/P by the VIBRATING SCREEN OPERATOR. We have discussed the pt. together.[email or web address] Review of Systems - Review of Systems Constitutional: reports: no symptoms reported EENTM: reports: no symptoms reported Respiratory: reports: no symptoms reported Cardiac (ROS): reports: no symptoms reported ABD/GI: reports: no symptoms reported : reports: no symptoms reported Musculoskeletal: reports: no symptoms reported
[2019-03-20 06:39] LABS: Anion Gap 12 mmol/L (10-20); BUN (Urea Nitrogen) 15 mg/dL (8.4-25.7); Calc. Creatinine Clearance 105 mL/min (70-130); Calcium 9.2 mg/dL (7.8-10.44); Carbon Dioxide 23 mmol/L (23-31); Chloride 105 mmol/L (98-107); Estimated GFR-MDRD 88; Glucose 67 mg/dL (80-115); Sodium 135 mmol/L (136-145)
[2019-03-20] MEDS: Carvedilol 3.125 MG TAB PO SCH ×2 (08:50→18:00)
[2019-03-20] MEDS: Folic Acid 1 MG TAB PO SCH (08:51)
[2019-03-20] MEDS: Thiamine 100 MG TAB PO SCH (08:51)
[2019-03-20] MEDS: Multivit, Therapeutic 1 TAB PO SCH (08:52)
[2019-03-20] MEDS: Furosemide 40 MG TAB PO SCH (08:52)
[2019-03-20] MEDS: Magnesium Oxide 400 MG TAB PO SCH ×2 (08:52→21:21)
[2019-03-20] MEDS: Potassium Chloride 20 MEQ TAB PO SCH ×3 (08:52→17:26)
[2019-03-20] MEDS: Senokot S 8.6-50 MG TAB PO SCH ×2 (08:52→21:22)
[2019-03-20] MEDS: Famotidine 20 MG TAB PO SCH ×2 (08:52→21:21)
[2019-03-20] MEDS: Aspirin Chewable 81 MG TAB PO SCH (08:52)
--- NOTE | 2019-03-20 13:14 | DIS ---
DATE OF ADMISSION: 03/13/2019 DATE OF DISCHARGE: 03/20/2019 FINAL DIAGNOSES AT THE TIME OF DISCHARGE: 1. Nonischemic dilated alcohol-induced cardiomyopathy with LVEF estimated at 10% to 15% on the current echocardiogram. 2. Acute on chronic combined heart failure with grade 3 diastolic dysfunction. 3. Coronary calcifications on CT but not flow limiting on left heart catheterization. 4. Nonsustained ventricular tachycardia. 5. Alcohol abuse. 6. Noncompliance. 7. Liver cirrhosis. 8. Alcoholism. CONSULTANTS: 1. Bg Benitez, Cardiology Service. 2. Ronaldo Venegas, Cardiology Service. PROCEDURE: Left heart catheterization. HOSPITAL COURSE: The patient is a 63-year-old male, who presented with shortness of breath which was going on for approximately 3 to 4 weeks with [id number] exertion. His symptoms progressively got worse and he was unable to live down flat. Also he noted significant swelling in his bilateral lower extremities. There was no chest pain, palpitation, lightheaded, dizziness, or syncope. He had some cough. Apparently, he was out of his medications for more than a month in the emergency room at [facility]. His pulse was 119, blood pressure 133/96, O2 saturation was 94% on room air. He received aspirin and Lasix and was transferred to [facility] in [place]. At the time of emergency room evaluation, his white count was 5.1, hemoglobin 13.4, hematocrit 44.2, platelet count was 250. D-dimer was 2.83. INR 1.3. Sodium 140, potassium 3.5, chloride 103, bicarb 24, BUN 11, creatinine 1.12. Troponin 0.039. BNP 1041 and plasma alcohol was 15. EKG showed normal sinus rhythm with nonspecific ST-T wave changes. CT angiogram of the chest showed small bilateral pleural effusion without any evidence of pulmonary embolism. There was some pulmonary edema with cardiomegaly. He got admitted to telemetry floor with IV diuretics, fluid restriction, thiamine, folic acid, multivitamin. He was seen by applied biology professor, Dr. Benitez, who recommended to continue diuresis and left heart evaluating catheterization when the patient is more stable, when he is able to lay flat, then introducing some beta nkechi and PRASANTH inhibitor when the blood pressure allows and underwent echocardiogram which showed LVEF estimated at 10% to 15%, grade 3 diastolic dysfunction, global hypokinesia, moderately dilated left atrium, moderately enlarged right atrium, moderate to severe mitral regurgitation, severe tricuspid regurgitation, and some pleural effusion. The patient gradually improved with IV Lasix. He underwent ultrasound of the abdomen which showed liver cirrhosis and mild ascites. Subsequently, he was taken to the [facility] and had left heart catheterization done which showed non-flow limiting mild coronary artery disease. Then, he was evaluated for the LifeVest. Apparently, he is unfunded and he does not have insurance and he was given an option to pay out of pocket 500 dollars and he is not able to come up with this kind of money at this point, but he said that he might later on, so he was advised to call [facility] which makes LifeVest and let them know when he can have it done, so they can come out and place that on him. Today, he is doing well. His blood pressure is 122/85, pulse is 98, respiratory rate is 16, O2 saturation is 97% on room air. He is seen and examined before he is discharged. He is discharged home in good condition. ACTIVITY: As tolerated. DIET: Low salt, heart healthy. MEDICATIONS: At the time of discharge: 1. Aspirin 81 mg once a day. 2. Carvedilol 3.125 mg 1/2 tablet twice a day. 3. Furosemide 40 mg daily. 4. Magnesium 400 mg twice a day. 5. Multivitamin one a day. 6. Potassium chloride 20 mEq daily. 7. Thiamine 100 mg daily. FOLLOWUP: He will follow up with his primary care physician in [address] Benitez in 2 weeks and he is going to be given phone number to [facility] and ask them to come out and put the LifeVest on him when he comes up with the co-payment he was recommended to pay and discharge was more than 30 minutes. Job ID: [id number]
[2019-03-20] MEDS: Amiodarone 200 MG TAB PO SCH ×2 (15:50→21:21)
[2019-03-21] MEDS: Cepastat Lozenges 1 LOZ PO PRN (00:21)
[2019-03-21] MEDS: Diabetic Tussin 200 MG/10 ML UDCUP PO PRN (00:22)
[2019-03-21 05:40] LABS: Anion Gap 13 mmol/L (10-20); BUN (Urea Nitrogen) 19 mg/dL (8.4-25.7); Calc. Creatinine Clearance 85 mL/min (70-130); Carbon Dioxide 23 mmol/L (23-31); Chloride 103 mmol/L (98-107); Estimated GFR-MDRD 69; Potassium 4.4 mmol/L (3.5-5.1); Sodium 135 mmol/L (136-145)
[2019-03-21 05:41] LABS: Calcium 9.3 mg/dL (7.8-10.44); Glucose 98 mg/dL (80-115)
[2019-03-21] MEDS: Aspirin Chewable 81 MG TAB PO SCH (08:51)
[2019-03-21] MEDS: Multivit, Therapeutic 1 TAB PO SCH (08:51)
[2019-03-21] MEDS: Magnesium Oxide 400 MG TAB PO SCH (08:51)
[2019-03-21] MEDS: Famotidine 20 MG TAB PO SCH (08:51)
[2019-03-21] MEDS: Furosemide 40 MG TAB PO SCH (08:51)
[2019-03-21] MEDS: Amiodarone 200 MG TAB PO SCH (08:52)
[2019-03-21] MEDS: Thiamine 100 MG TAB PO SCH (08:52)
[2019-03-21] MEDS: Senokot S 8.6-50 MG TAB PO SCH (08:52)
[2019-03-21] MEDS: Potassium Chloride 20 MEQ TAB PO SCH (08:52)
[2019-03-21] MEDS: Folic Acid 1 MG TAB PO SCH (08:53)
[2019-03-21] MEDS: Carvedilol 3.125 MG TAB PO SCH (08:59)
[2019-03-21 12:25] VITALS: BP 100/74; TEMP 98.2
--- NOTE | 2019-03-21 20:19 | EKG ---
Test Reason : Blood Pressure : / mmHG Vent. Rate : 110 BPM Atrial Rate : 115 BPM P-R Int : 146 ms QRS Dur : 100 ms QT Int : 382 ms P-R-T Axes : 033 -14 160 degrees QTc Int : 516 ms Sinus with frequent Premature ventricular complexes Minimal voltage criteria for LVH, may be normal variant T wave abnormality, consider lateral ischemia Abnormal ECG Confirmed by LEILA BERGER D.O. ([id number]), supervising editor trailer [place] ([id number]) on 03/21/2019 8:19:03 PM Referred By: Confirmed By:LEILA BERGER D.O.
--- NOTE | 2019-03-23 14:08 | DIS ---
DATE OF ADMISSION: 03/13/2019 DATE OF DISCHARGE: 03/21/2019 ADDENDUM: The patient was originally discharged yesterday but creative writing english professor hold the discharge and he put him on amiodarone since there was some PVCs on his monitoring and he is getting discharged today with amiodarone p.o. on the top of his medications previously dictated. His dose of amiodarone is 200 mg tablets, two tablets twice a day for 2 weeks, then one tablet twice a day for 2 weeks, then he is going to take one tablet once a day. Job ID: [id number]
== END 2019-03-21 12:52 | disposition home or self-care (01) | DRG 286 ==
LOC: ERS 23:36 → 2SE 03-13 02:28 → 2NO 03-14 18:22
PROVIDERS: ADMIT Internal Medicine; ATTEND Internal Medicine
PROC: 4A023N8 Measurement of Cardiac Sampling and Pressure, Bilateral, Percutaneous Approach (ICD-10-PCS; principal; 2019-03-13)
PROC: B2151ZZ Fluoroscopy of Left Heart using Low Osmolar Contrast (ICD-10-PCS; 2019-03-13)
PROC: B2111ZZ Fluoroscopy of Multiple Coronary Arteries using Low Osmolar Contrast (ICD-10-PCS; 2019-03-13)
DX: I13.0 Hypertensive heart and chronic kidney disease with heart failure and stage 1 through stage 4 chronic kidney disease, or unspecified chronic kidney disease (principal); I50.43 Acute on chronic combined systolic (congestive) and diastolic (congestive) heart failure; I47.2 Ventricular tachycardia; F10.288 Alcohol dependence with other alcohol-induced disorder; N18.2 Chronic kidney disease, stage 2 (mild); I42.6 Alcoholic cardiomyopathy; K70.31 Alcoholic cirrhosis of liver with ascites; I08.1 Rheumatic disorders of both mitral and tricuspid valves; Z91.14 Patient's other noncompliance with medication regimen; Z79.899 Other long term (current) drug therapy; I49.3 Ventricular premature depolarization; K76.1 Chronic passive congestion of liver; I42.0 Dilated cardiomyopathy
CPT/HCPCS: 36415; 36416; 71275; 76700; 80048; 80076; 83735; 84100; 84132; 84443; 84484; 84550; 90471; 90732; 93005; 93306; 93458; 93798; 99152; C1769; G0009; J0282; J1250; J1644; J1940; J2001; J2250; J3010; J7070; Q9966; Q9967

== ENCOUNTER 2019-05-21 16:20 | Emergency (ER) | payer SELFPAY ==
--- NOTE | 2019-05-21 17:14 | RAD ---
FRONTAL VIEW CHEST: 05/21/19 COMPARISON: 03/12/19. INDICATION: Short of breath. FINDINGS: There is patchy bibasilar density as well as adjacent pleural based opacification obscuring the hemid iaphragms. Enlargement of the cardiac silhouette and pulmonary vasculature. Bilateral perihilar inter stitial prominence. IMPRESSION: Findings favor fluid overload from decompensated CHF with bilateral pleural fluid. Superimposed bibas ilar opacities could relate to edema, atelectasis and/or pneumonia. Follow-up to resolution recommend ed. POS: OFF
[2019-05-21] MEDS ORDERED: Furosemide 40 MG/4 ML VIAL ONE (17:15)
[2019-05-21 17:41] LABS: #Eosinphils 0.1 thou/uL (0.0-0.7); #Lymphocytes 0.6 thou/uL (1.20-3.40); #Monocytes 0.5 thou/uL (0.11-0.59); #Neutrophils 2.5 thou/uL (1.40-6.50); %Basophils 0.5 % (0.0-1.0); %Eosinophils 3.6 % (0.0-10.0); %Lymphocytes 16.3 % (21.0-51.0); %Neutrophils 66.6 % (42.0-75.0); Hemoglobin 13.5 g/dL (14.0-18.0); Mean Corpuscular HGB CONC 31.1 g/dL (32.0-36.0); Mean Corpuscular Hemoglobin 29.5 pg (27.0-31.0); Mean Corpuscular Volume 94.8 fL (78.0-98.0); Mean Platelet Volume 7.3 fL (7.4-10.4); Platelet Count 164 thou/uL (130-400); RBC Distribution Width 16.4 % (11.5-14.5); Red Blood Cell (RBC) Count 4.57 mill/uL (4.70-6.10); White Blood Cell (WBC) Count 3.7 thou/uL (4.8-10.8)
[2019-05-21 18:11] LABS: ALT (SGPT) 19 U/L (8-55); AST (SGOT) 23 U/L (5-34); Albumin 3.6 g/dL (3.4-4.8); Alkaline Phosphatase 119 U/L (40-150); Anion Gap 15 mmol/L (10-20); BUN (Urea Nitrogen) 12 mg/dL (8.4-25.7); Bilirubin, Total 2.6 mg/dL (0.2-1.2); CK (CPK) 170 U/L (30-200); Calc. Creatinine Clearance 0 mL/min (70-130); Calcium 9.4 mg/dL (7.8-10.44); Carbon Dioxide 24 mmol/L (23-31); Chloride 110 mmol/L (98-107); Estimated GFR-MDRD Greater than 90; Globulin 3.4 g/dL (2.4-3.5); Glucose 89 mg/dL (80-115); Sodium 145 mmol/L (136-145)
== END 2019-05-21 19:34 | disposition home or self-care (01) ==
LOC: ERS 16:20
DX: I11.0 Hypertensive heart disease with heart failure (principal); I50.9 Heart failure, unspecified; K74.60 Unspecified cirrhosis of liver; Z91.14 Patient's other noncompliance with medication regimen; Z79.899 Other long term (current) drug therapy; Z79.891 Long term (current) use of opiate analgesic
CPT/HCPCS: 36415; 71045; 80053; 82550; 83880; 84484; 85025; 93005; 94760; 96374; J1940

== ENCOUNTER 2019-06-06 21:29 | Inpatient (IN) | payer SELFPAY ==
[2019-06-06 22:44] LABS: #Eosinphils 0.1 thou/uL (0.0-0.7); #Lymphocytes 0.6 thou/uL (1.20-3.40); #Monocytes 0.4 thou/uL (0.11-0.59); #Neutrophils 2.5 thou/uL (1.40-6.50); %Basophils 0.3 % (0.0-1.0); %Eosinophils 2.9 % (0.0-10.0); %Neutrophils 69.8 % (42.0-75.0); Hemoglobin 12.2 g/dL (14.0-18.0); Mean Corpuscular HGB CONC 32.1 g/dL (32.0-36.0); Mean Corpuscular Hemoglobin 30.9 pg (27.0-31.0); Mean Corpuscular Volume 96.2 fL (78.0-98.0); Mean Platelet Volume 7.2 fL (7.4-10.4); Platelet Count 143 thou/uL (130-400); RBC Distribution Width 15.7 % (11.5-14.5); Red Blood Cell (RBC) Count 3.96 mill/uL (4.70-6.10); White Blood Cell (WBC) Count 3.5 thou/uL (4.8-10.8)
--- NOTE | 2019-06-06 22:50 | RAD ---
Portable frontal chest radiograph: 06/06/2019 COMPARISON: 06/03/2019 HISTORY: Weakness with bilateral lower extremity edema FINDINGS: Stable enlargement of the cardiac silhouette. Stable blunting of the costophrenic angles, r ight greater than left, suggesting pleural effusions. No focal consolidation. IMPRESSION: Stable prominence of the cardiac silhouette with stable bilateral pleural effusions.
[2019-06-06 23:04] LABS: ALT (SGPT) 17 U/L (8-55); AST (SGOT) 23 U/L (5-34); Albumin 3.3 g/dL (3.4-4.8); Alkaline Phosphatase 99 U/L (40-150); Anion Gap 12 mmol/L (10-20); BUN (Urea Nitrogen) 11 mg/dL (8.4-25.7); Bilirubin, Total 2.4 mg/dL (0.2-1.2); Calc. Creatinine Clearance 0 mL/min (70-130); Calcium 8.8 mg/dL (7.8-10.44); Carbon Dioxide 21 mmol/L (23-31); Chloride 111 mmol/L (98-107); Estimated GFR-MDRD 90; Glucose 97 mg/dL (80-115); Potassium 3.3 mmol/L (3.5-5.1); Protein, Total 6.3 g/dL (5.8-8.1); Sodium 141 mmol/L (136-145)
[2019-06-06 23:27] LABS: CKMB 2.5 ng/mL (0-6.6)
[2019-06-07] MEDS ORDERED: Furosemide 40 MG/4 ML VIAL ONE (00:12)
[2019-06-07 02:08] VITALS: BMI 26.2
[2019-06-07 04:54] LABS: Troponin I 0.053 ng/mL (< 0.028)
[2019-06-07] MEDS ORDERED: HYDROcodone/Acetaminophen 5/325 mg Tablet PO PRN (08:49)
[2019-06-07] MEDS ORDERED: Acetaminophen 325 MG TAB PO PRN (08:49)
[2019-06-07] MEDS ORDERED: Calcium Carbonate 500 MG ChewTAB PO PRN (08:49)
[2019-06-07] MEDS ORDERED: HYDROcodone/Acetaminophen 7.5/325 mg Tablet PO PRN (08:49)
[2019-06-07] MEDS ORDERED: Ondansetron PF 4 MG/2 ML Vial IVP PRN (08:49)
[2019-06-07] MEDS ORDERED: Ondansetron ODT 4 MG TAB PO PRN (08:49)
[2019-06-07] MEDS ORDERED: Docusate 100 MG CAP PO PRN (08:51)
[2019-06-07] MEDS ORDERED: diphenhydrAMINE 25 MG CAP PO PRN (08:51)
[2019-06-07] MEDS ORDERED: hydrALAZINE 20 MG/ML VIAL SLOW IVP PRN (08:51)
[2019-06-07] MEDS ORDERED: Benzonatate 100 MG CAP PO PRN (08:51)
[2019-06-07] MEDS ORDERED: Aspirin 325 MG TAB PO SCH (09:00)
[2019-06-07] MEDS ORDERED: Furosemide 40 MG/4 ML VIAL SLOW IVP SCH (09:30)
[2019-06-07] MEDS: Famotidine 20 MG TAB PO SCH ×2 (09:32→21:23)
[2019-06-07] MEDS: Amiodarone 200 MG TAB PO SCH (09:32)
[2019-06-07] MEDS: Lisinopril 2.5 MG TAB PO SCH (09:32)
[2019-06-07] MEDS: Aspirin Chewable 81 MG TAB PO SCH (09:32)
[2019-06-07] MEDS: Furosemide 40 MG/4 ML VIAL SLOW IVP SCH (15:06)
--- NOTE | 2019-06-07 15:36 | HP ---
CHIEF COMPLAINT: Shortness of breath. HISTORY OF PRESENT ILLNESS: Mr. Mckeon is a pleasant 63-year-old gentleman with past medical history of cardiomyopathy with ejection fraction of 10%, history of heavy alcohol use with alcoholic cirrhosis, dilated cardiomyopathy secondary to alcohol use, and hypertension, who presents with worsening shortness of breath. The patient was recently diagnosed with dilated cardiomyopathy 2 months ago secondary to heavy alcohol use. Since that time, the patient has been following up with Cardiology and has been taking medications as directed. The patient has recently undergone cardiac catheterization. He states that there was no intervention done and no stents placed. The patient states that he has been compliant with medications, and he has been trying to follow up with his doctors as directed. The patient does endorse that he has not been strictly monitoring his fluid intake. The patient presents with worsening shortness of breath. The patient with worsening lower extremity edema. The patient was diagnosed with acute CHF on admission. PAST MEDICAL HISTORY: 1. Dilated cardiomyopathy secondary to alcohol abuse. 2. History of heavy alcohol use, recently quit 2 months ago. 3. Hypertension. 4. Arrhythmia. HOME MEDICATIONS: 1. Lisinopril 2.5 mg 1 tablet p.o. daily. 2. Amiodarone 200 mg 1 tablet p.o. daily. 3. Carvedilol 3.125 mg 1 tablet p.o. b.i.d. 4. Aspirin 81 mg 1 tablet p.o. daily. 5. Potassium chloride 20 mEq 1 tablet p.o. daily. 6. Furosemide 40 mg 1 tablet p.o. daily. REVIEW OF SYSTEMS: A 10-point review of systems was conducted and negative aside of what mentioned in history of present illness. ALLERGIES: NO KNOWN DRUG ALLERGIES. PHYSICAL EXAMINATION: VITAL SIGNS: Temperature 97.7, pulse 92, blood pressure 167/96, respirations 20, O2 saturation 98% on room air. HEENT: Head is normocephalic and atraumatic. Pupils are equally round and reactive to light and accommodation. There are no appreciated exudates or erythema on the tonsils. Extraocular muscles are intact. Vision is grossly intact. There is conjunctival injection. CARDIAC: S1 and S2 present. There is an audible systolic murmur. LUNGS: There are decreased breath sounds in the lower lung chowdary bilaterally. There are very faint rales in the upper lung chowdary. No wheezing or rhonchi. ABDOMEN: Soft, nontender, and nondistended without focal guarding or rigidity. No abdominal bruits or masses appreciated. MUSCULOSKELETAL: Adequate alignment of the spine. Range of motion of the spine and extremities is grossly intact and symmetric. No joint erythema. EXTREMITIES: Lower extremities; there is 3+ lower extremity pitting edema bilaterally. There is no appreciated cellulitis or signs of acute infection. NEUROLOGIC: Cranial nerves 2 through 12 are grossly intact. Strength and sensation are symmetric and intact. SKIN: Normal skin color, texture, and turgor. No appreciated lesions or rashes. PSYCHIATRIC: The patient is alert and oriented x3 with fair insight into clinical condition. The patient is cooperative with history and physical. No hallucinations. Normal affect. LABORATORY DATA: WBC 3.5, RBC 3.96, hemoglobin 12.2, hematocrit 38.1, MCV 96.2, platelets 143. Sodium 141, potassium 3.3, chloride 111, carbon dioxide 21, anion gap 12, BUN 11, creatinine 1.02, estimated GFR 90, glucose 97, calcium 8.8, total bilirubin 2.4, AST 23, ALT 17, alkaline phosphatase 99. Troponin 0.045. BNP 1163. Serum total protein 6.3, albumin 3.3, globulin 3.0. RADIOGRAPHIC IMAGING: Chest x-ray, impression: Stable prominence of cardiac silhouette with stable bilateral pleural effusions. ASSESSMENT AND PLAN: 1. Shortness of breath - secondary to [id number] systolic and diastolic heart failure with acute exacerbation. Cardiology consultation requested, recommendations appreciated. We will restart cardiomyopathy regimen. Fluid restriction. IV Lasix. The patient with recent echocardiogram demonstrating ejection fraction of 10% to 15%. The patient has undergone cardiac catheterization recently, please see full report for details. The patient was set up with [facility] on last admission. We will consult with Cardiology and see what the progress is on automatic implantable cardioverter-defibrillator placement. The patient may need further period of medical compliance with medical regimen to see if he is a candidate for automatic implantable cardioverter-defibrillator. 2. History of heavy alcohol use resulting in dilated cardiomyopathy. The patient states that he has stopped drinking 2 months ago. The patient is attempting to be compliant with followup with physicians and medical regimen. 3. Alcoholic cirrhosis. 4. Hypertension. 5. Bilateral pleural effusion - secondary to congestive heart failure exacerbation. Diuretic therapy as tolerated by vital signs and renal function. Job ID: [id number]
[2019-06-07] MEDS ORDERED: Carvedilol 3.125 MG TAB PO SCH (17:00)
[2019-06-07] MEDS: Carvedilol 3.125 MG TAB PO SCH (17:01)
[2019-06-07] MEDS ORDERED: DOBUTamine 500 mg/250 ml 250 ML IVPB SCH (19:00)
--- NOTE | 2019-06-07 20:37 | CON ---
DATE OF CONSULTATION: PRIMARY CARE PHYSICIAN: The patient's primary care doctor is at [facility]. PRIMARY DELIVERY PERSON: Bg Benitez MD REASON FOR CARDIOLOGY CONSULT: CHF exacerbation. HISTORY OF PRESENT ILLNESS: Mr. Mckeon is a very nice 63-year-old male with a significant history of nonischemic EtOH cardiomyopathy with ejection fraction of 10% to 15% with grade 3 diastolic dysfunction, hypertension, EtOH abuse, quit 2 months ago, and arrhythmia. The patient was in the hospital in February to March 2019, for nonischemic EtOH cardiomyopathy. The patient was discharged with LifeVest. The patient followed up with Dr. Benitez on April 15, 2019; at that time, he was doing well. He denies any shortness of breath, but only feeling fatigued with walking if he walks too far. However, since then, according to the patient, he started having more shortness of breath, feeling more fatigued, and worse in bilateral lower extremities within a couple of days. His symptom is getting worse, so he decided to present to the emergency department for further cardiac examination and treatment. He quit drinking since he was discharged from hospital 2 months ago. He tries to watch his diet. He for the salt intake. However, his girlfriend cooks for him, and he does not know exactly what she is using for ingredient. At this moment, the patient denies any shortness of breath, dizziness, lightheadedness, chest pain, heaviness, tightness, or any other cardiac complaints. The patient had echocardiograms done on March 13, 2019, with EF 10% to 15%, grade 3 diastolic dysfunction, global hypokinesis, moderately dilated left atrium, moderately enlarged right atrium size, moderate to severe mitral valve regurgitation, trial aortic valve regurgitation, and severe tricuspid regurgitation, and pleural effusion. The patient underwent cardiac catheterization on March 18 with normal coronary arteries with EF 20%. PAST MEDICAL HISTORY: Nonischemic EtOH cardiomyopathy, chronic combined heart failure, hypertension, heavy EtOH abuse, quit 2 months ago, and arrhythmia. PAST SURGICAL HISTORY: None the patient. FAMILY HISTORY: The patient's mother has history of heart disease. The patient's sister has a history of bladder cancer. SOCIAL HISTORY: He is single. He lives with his girlfriend. He is disable. He is an ex-EtOH abuser, he quit in March 2019. He denies tobacco or illicit drug abuse. He does not exercise. He tries to watch his salt and fluid intake. ALLERGIES: NO KNOWN DRUG ALLERGIES. MEDICATIONS: 1. Aspirin 81 mg once a day. 2. Carvedilol 3.125 mg half tablet twice a day. 3. Lasix 40 mg once a day. 4. Potassium 20 mEq once a day. 5. Lisinopril 2.5 mg once a day. 6. Amiodarone 200 mg once a day, because he has a nonsustained ventricular tachycardia in March 2019. REVIEW OF SYSTEMS: Twelve-point review of systems negative unless otherwise mentioned in the HPI. PHYSICAL EXAMINATION: VITAL SIGNS: Blood pressure 137/92, temperature 97.7, pulse is 80s, O2 saturation 96% on room air, and respiratory rate 18. GENERAL: The patient is alert and oriented x4. Nonfocal. Not in acute distress. HEENT: Normocephalic and atraumatic. Eyes, extraocular muscle movement intact. ENT and mouth, oral and nasal mucosa moist without lesion. NECK: Supple. Normal range of motion. No JVD. RESPIRATORY: Clear to auscultate bilaterally, but diminished at the bases. No wheezing, rales, or rhonchi noted. CARDIOVASCULAR: Regular rate and rhythm. Normal S1 and S2. There is no S3 or S4. He does have significant murmur at the left mediastinal border. 2+ in bilateral upper and lower extremities. He has 1+ pitting edema in the bilateral lower extremities. ABDOMEN: Soft, nontender. No mass to palpate. Bowel sounds are present. MUSCULOSKELETAL: The patient is able to move all extremities. SKIN: Warm and dry. No lesion, rash, or erythema noted. Carotid pulses are present without bruit or thrill. NEUROLOGIC: The patient is easy to forgetful at this moment; however, patient is alert and oriented x4. PSYCHIATRIC: The patient's mood is appropriate. DIAGNOSTIC DATA: The patient's chest x-ray shows stable prominent cardiac silhouette with stable bilateral pleural effusions. LABORATORY DATA: WBC 3.5, hemoglobin 12.2, hematocrit 38.1, platelets 143. Sodium 141, potassium 3.3, BUN 11, creatinine 1.02, calcium 8.8, uric acid 8.5. AST 23 and ALT 17. Creatine kinase 170, CK-MB 2.5, troponin 0.053. BNP 1163. TSH 5.0240. ASSESSMENT AND PLAN: 1. Zehmu-kg-[id number] combined heart failure. The patient's BNP at this time is more than 1100. The patient received Lasix IV push at the ER. He states his breathing is more stable. He has to be on Lasix IV push twice a day so far. His swelling in the bilateral lower legs has been improved. The patient's kidney function is stable at this moment. The patient is on carvedilol 3.125 mg twice a day and lisinopril 2.5 mg once a day. 2. Hypertension. The patient's blood pressure is stable at this moment. 3. History of nonsustained supraventricular tachycardia. The patient has been on the telemetry. There is no arrhythmia noted. He is on amiodarone 200 mg once a day. 4. The patient is supposed to follow up with Dr. Benitez in June 16 with echocardiogram for 3-month followup, and possibly the patient might need to undergo defibrillator placement. At this moment, the patient is stable. Thank you very much for allowing the Cardiology Service to participate in the care of this patient. We will follow along the patient's care team and make further recommendation as appropriate. Job ID: [id number]
[2019-06-07] MEDS ORDERED: Potassium Chloride 20 MEQ TAB PO SCH (21:00)
--- NOTE | 2019-06-07 22:28 | CON ---
DATE OF CONSULTATION: 06/07/2019 INDICATION FOR CONSULTATION: A 63-year-old gentleman with nonischemic cardiomyopathy, who presents again with CHF exacerbation. Ejection fraction has been documented in the past about 15% to 20%. He was recently in the hospital couple of months ago with similar symptoms where he became more short of breath and has significant edema. He did improve after being given IV dobutamine at that time, but now he seems to have some urinary output just by using the Lasix alone. If need be, then we will increase and we will add the dobutamine. He has not been placed on Entresto or Aldactone. This may be due to financial constraints. He had significant alcohol use in the past. It is felt that his cardiomyopathy is due to heavy alcohol use and may improve if he stops the alcohol unless he has had illicit drug use in the past that may have caused him further cardiomyopathy. At this time, he is comfortable. His shortness of breath has improved as he was given IV Lasix. He denied any chest pain. He does have some lower extremity edema, but not as significant as it was on his last admission. PAST MEDICAL HISTORY: Please refer the notes dictated by the nurse practitioner,Janel Miranda. SOCIAL HISTORY: Please refer the notes dictated by the nurse practitioner,Janel Miranda. FAMILY HISTORY: Please refer the notes dictated by the nurse practitioner,Janel Miranda. REVIEW OF SYSTEMS: Please refer the notes dictated by the nurse practitionerJanel. MEDICATIONS: Please refer the notes dictated by the nurse practitionerJanel. ALLERGIES: PLEASE REFER THE NOTES DICTATED BY THE NURSE PRACTITIONERJANEL. PHYSICAL EXAMINATION: GENERAL: Reveals an elderly gentleman, who is in no acute distress at this time. He is alert. He is oriented. He is very pleasant. He is answering all questions appropriately. VITAL SIGNS: His blood pressure is 127/85. His temperature is 98.9, heart rate is 80 and regular, respiratory rate is 18, O2 saturation 95%. HEENT: Shows the head to be normocephalic and atraumatic. Carotid pulses are present without any bruits. CHEST: Has decreased breath sounds in the bases, but otherwise is clear. There were no rales or rhonchi noted. CARDIOVASCULAR: Heart sounds are somewhat distant. He has a very soft systolic murmur at the apex. I do not hear any significant ectopy, otherwise S1 and S2 are present. I cannot hear an S3 nor an S4 today. ABDOMEN: Somewhat tympanic, but it is soft and nontender. I cannot palpate any masses. Positive bowel sounds are present. EXTREMITIES: Show mild lower extremity edema. Pedal pulses are present. NEUROLOGIC: The patient appears to be grossly intact. SKIN: Warm and dry. LABORATORY DATA: Shows a potassium of 3.3. His creatinine was 1.02, BUN was 11. His BNP was 1163. Hemoglobin was 12.2. At this time, EKG also shows a sinus rhythm without any ischemic changes. He does have evidence of left ventricular hypertrophy with associated T-wave changes, but no acute changes otherwise were noted. No indication of previous myocardial infarction. IMPRESSION: 1. Congestive heart failure exacerbation due to his nonischemic cardiomyopathy with volume overload. He was being given IV diuretics and has already had some improvement if he continues to diurese that will most likely be adequate. Otherwise, we may need to start him again on dobutamine. I believe he was on this medication on his last admission. Also, he has not been on Entresto. Also, he has not been on Aldactone. His kidney function may tolerate the Aldactone. I am uncertain whether or not financially he can afford these medications. However, next is some concern that perhaps last time he was here, he was advised to have LifeVest prior to being discharged. We will need to determine whether or not he has had this device, whether or not he continues to wear it. If not, he may become a candidate for an implantable defibrillator due to his severe cardiomyopathy. 2. History of alcoholic cirrhosis. This will be dealt with the primary care service. 3. Hypertension. This is under relatively good control at this time. Chest x-ray did show some bilateral pleural effusions and hopefully these will improve or resolve with the use of IV diuretics. Further care of the patient will be by Dr. Benitez when he visits with the patient tomorrow. At this time, we will continue his medications as noted already in the orders. Job ID: [id number]
[2019-06-08 05:39] LABS: Anion Gap 12 mmol/L (10-20); BUN (Urea Nitrogen) 13 mg/dL (8.4-25.7); Calc. Creatinine Clearance 88 mL/min (70-130); Calcium 8.9 mg/dL (7.8-10.44); Carbon Dioxide 24 mmol/L (23-31); Chloride 110 mmol/L (98-107); Estimated GFR-MDRD 77; Glucose 99 mg/dL (80-115); Potassium 3.8 mmol/L (3.5-5.1); Sodium 142 mmol/L (136-145)
[2019-06-08] MEDS: Furosemide 40 MG/4 ML VIAL SLOW IVP SCH ×2 (05:39→13:30)
[2019-06-08] MEDS: Aspirin Chewable 81 MG TAB PO SCH (08:51)
[2019-06-08] MEDS: Lisinopril 2.5 MG TAB PO SCH (08:51)
[2019-06-08] MEDS: Famotidine 20 MG TAB PO SCH ×2 (08:52→20:37)
[2019-06-08] MEDS: Carvedilol 3.125 MG TAB PO SCH ×2 (08:52→18:11)
[2019-06-08] MEDS: Amiodarone 200 MG TAB PO SCH (08:53)
[2019-06-08] MEDS ORDERED: Polyethylene Glycol 3350 17 GM Packet PO PRN (10:52)
--- NOTE | 2019-06-08 12:03 | PDOC.CPN ---
- Subjective Date: 06/08/19 Time: 12:01 Interval history: No new issues. Still has LE edema but breathing is better. He seems a little more confused than normal today. - Review of Systems General: denies: fever/chills, weight/appetite/sleep changes, night sweats, fatigue Respiratory: denies: cough, congestion, shortness of breath, exercise intolerance Cardiovascular: reports: edema. denies: chest pain, palpitation, paroxysmal nocturnal dyspnea, orthopnea Gastrointestinal: denies: nausea, vomiting, diarrhea, constipation, abd pain, GI bleeding Musculoskeletal: denies: pain, tenderness, stiffness, swelling, arthritis/ arthralgias Neurological: denies: numbness, syncope, seizure, weakness - Objective Allergies/Adverse Reactions: Allergies Allergy/AdvReac Type Severity Reaction Status Date / Time No Known Allergies Allergy Verified 03/13/19 03:23 Visit Medications: Current Medications Acetaminophen (Tylenol) 650 mg PO Q4H PRN PRN Reason: Headache/Fever/Mild Pain (1-3) Hydrocodone Bitart/Acetaminophen ([place] 5/325) 1 tab PO Q4H PRN PRN Reason: Moderate Pain (4-6) Hydrocodone Bitart/Acetaminophen ([place] 7.5/325) 1 tab PO Q4H PRN PRN Reason: Severe Pain (7-10) Albuterol/Ipratropium (Duoneb) 3 ml NEB [id number] PRN PRN Reason: SOB &/or Wheezing Amiodarone HCl (Cordarone) 200 mg PO DAILY [facility] Last Admin: 06/08/19 08:53 Dose: 200 mg Aspirin (Aspirin Chewable) 81 mg PO DAILY [facility] Last Admin: 06/08/19 08:51 Dose: 81 mg Benzonatate (Tessalon) 100 mg PO Q4H PRN PRN Reason: Cough Calcium Carbonate (Tums) 1,000 mg PO Q4H PRN PRN Reason: Heartburn or Indigestion Carvedilol (Coreg) 3.125 mg PO BID-[facility] Last Admin: 06/08/19 08:52 Dose: 3.125 mg Diphenhydramine HCl (Benadryl) 25 mg PO Q6H PRN PRN Reason: Itching & Insomnia Docusate Sodium (Colace) 100 mg PO BIDPRN PRN PRN Reason: Constipation Last Admin: 06/07/19 21:24 Dose: 100 mg Famotidine (Pepcid) 20 mg PO BID [facility] Last Admin: 06/08/19 08:52 Dose: 20 mg Furosemide (Lasix) 40 mg SLOW IVP 0600,1400 [facility] Last Admin: 06/08/19 05:39 Dose: 40 mg Hydralazine HCl (Apresoline) 10 mg SLOW IVP Q4H PRN PRN Reason: SBP >/= 180 Lisinopril (Zestril) 2.5 mg PO DAILY [facility] Last Admin: 06/08/19 08:51 Dose: 2.5 mg Ondansetron HCl (Zofran Odt) 4 mg PO Q6H PRN PRN Reason: Nausea/Vomiting Ondansetron HCl (Zofran) 4 mg IVP Q6H PRN PRN Reason: Nausea/Vomiting Polyethylene Glycol (Miralax) 17 gm PO DAILYPRN PRN PRN Reason: Constipation Vital Signs & Weight: Vital Signs Temp Pulse Resp BP BP Pulse Ox 06/08/19 08:52 98.0 F 82 20 131/92 H 98 06/08/19 08:51 75 131/92 H 06/08/19 03:30 97.4 F L 75 20 133/96 H 97 Admit Weight 215 lb Weight 206 lb 6.4 oz - Quality Measures Condition: Heart Failure CV meds: Beta Rigo: Yes, PRASANTH/ARB: Yes - Physical Exam General: alert & oriented x3, no apparent distress HEENT: mucus membranes moist, normocephaly Neck: supple neck, midline trachea Cardiac: regular rate and rhythm, no murmur Lungs: clear to auscultation, no wheeze, rales, rhonchi Neuro: grossly intact, coordination normal Abdomen: active bowel sounds, soft, non-tender Skin: clear Musculoskeletal: normal range of motion (1+ edema bilat .), no pain - Labs Result Diagrams: 06/06/19 22:32 06/08/19 04:53 Troponin/CKMB CK-MB (CK-2) 2.5 ng/mL (0-6.6) 06/06/19 22:32 Troponin I 0.053 ng/mL (< 0.028) H 06/07/19 04:19 - Telemetry Sinus rhythms and dysrhythmias: sinus rhythm - Assessment/Plan Assessment/Plan: 1. Acute on chronic systolic heart failure. 2. Non ischemic CM EF at 10-15% 3. Hx of alcohol use quit 2 months ago 4. Hx of alcoholic cirrhosis per pt report. PLAN: - Continue IV diuresis. - The plan was to re evaluate with echo on next visit in the office in June and if LV function remained low would recommend an AICD. - Will Continue this plan as he has to be 3 months out before an AICD is recommended. - Continue IV diuresis. - Would recommend getting an amonia levels as he seems more confused today.
[2019-06-08 13:14] LABS: Free T4 (Free Thyroxine) 0.9 ng/dL (0.70-1.48)
--- NOTE | 2019-06-08 15:37 | PDOC.HOSPP ---
- Subjective Subjective: Seen and examined. Patient denies pain. Breathing well on room air. Patient constipated, elevated ammonia, will restart lactulose therapy. Patient was not at his baseline neurologic status per heater room helper who knows him best. - Objective Vital Signs & Weight: Vital Signs (12 hours) Temp Pulse Pulse Pulse Resp BP BP 06/08/19 11:40 98.2 F 73 16 06/08/19 10:04 85 84 134/92 H 06/08/19 08:52 98.0 F 82 20 06/08/19 08:51 75 131/92 H BP BP Pulse Ox Pulse Ox 06/08/19 11:40 129/81 99 06/08/19 10:04 148/99 H 97 06/08/19 08:52 131/92 H 98 06/08/19 08:51 Weight Admit Weight 215 lb Weight 206 lb 6.4 oz I&O: 06/07/19 06/08/19 06/09/19 06:59 06:59 06:59 Intake Total 1250 Output Total 2810 825 Balance -1560 -825 Result Diagrams: 06/06/19 22:32 06/08/19 04:53 Radiology Reviewed by me: Yes (CXR) Hospitalist ROS - Review of Systems All other systems reviewed; all pertinent +/- noted in HPI/Subj - Medication Medications: Active Medications Generic Name Dose Route Start Last Admin Trade Name Freq PRN Reason Stop Dose Admin Aspirin 81 mg 06/07/19 09:00 06/08/19 08:51 Aspirin Chewable PO 81 mg DAILY [facility] Administration Carvedilol 3.125 mg 06/07/19 17:00 06/08/19 08:52 Coreg PO 3.125 mg BID-[facility] Administration Docusate Sodium 100 mg 06/07/19 08:51 06/07/19 21:24 Colace PO 100 mg BIDPRN PRN Administration Constipation Famotidine 20 mg 06/07/19 09:00 06/08/19 08:52 Pepcid PO 20 mg BID [facility] Administration Furosemide 40 mg 06/07/19 14:00 06/08/19 13:30 Lasix SLOW IVP 40 mg 0600,1400 [facility] Administration Lisinopril 2.5 mg 06/07/19 09:00 06/08/19 08:51 Zestril PO 2.5 mg DAILY [facility] Administration - Exam General Appearance: NAD, awake alert Eye: anicteric sclera ENT: moist mucosa Neck: supple, symmetric Heart: no murmur, no gallops, no rubs Respiratory: no wheezes, no ronchi, normal chest expansion, rales Gastrointestinal: soft, non-tender, no palpable masses, no guarding, no rigidity , distended Extremities: 1+ LE edema Skin: no rashes Neurological: cranial nerve grossly intact, normal sensation to touch Musculoskeletal: no muscle wasting Psychiatric: oriented to person, oriented to place, flat affect, lethargic Hosp A/P (1) Hepatic encephalopathy Code(s): K72.90 - HEPATIC FAILURE, UNSPECIFIED WITHOUT COMA Status: Acute (2) Increased ammonia level Code(s): R79.89 - OTHER SPECIFIED ABNORMAL FINDINGS OF BLOOD CHEMISTRY Status : Acute (3) Acute on chronic congestive heart failure Code(s): I50.9 - HEART FAILURE, UNSPECIFIED Status: Acute (4) Systolic CHF Code(s): I50.20 - UNSPECIFIED SYSTOLIC (CONGESTIVE) HEART FAILURE Status: Acute (5) Alcoholic cirrhosis of liver Code(s): K70.30 - ALCOHOLIC CIRRHOSIS OF LIVER WITHOUT ASCITES Status: Chronic (6) Nonadherence to medication Code(s): Z91.14 - PATIENT'S OTHER NONCOMPLIANCE WITH MEDICATION REGIMEN Status : Chronic - Plan Plan: cardiology consultation, recommendations appreciated IV Lasix to continue diuresis patient is breathing much easier and is now on room air patient now with hepatic encephalopathy, elevated ammonia hundred and 13 start lactulose therapy 20 mg four times per day, will plan to hold a single dose for loose stool titrate to diarrhea. Cardiomyopathy regimen as able life vest AICD evaluation in June if the patient can be medically compliant
[2019-06-09] MEDS: Furosemide 40 MG/4 ML VIAL SLOW IVP SCH ×2 (05:39→13:42)
[2019-06-09] MEDS: Famotidine 20 MG TAB PO SCH ×2 (09:27→22:02)
[2019-06-09] MEDS: Carvedilol 3.125 MG TAB PO SCH ×2 (09:27→16:33)
[2019-06-09] MEDS: Lisinopril 2.5 MG TAB PO SCH (09:27)
[2019-06-09] MEDS: Aspirin Chewable 81 MG TAB PO SCH (09:27)
[2019-06-09 10:44] LABS: #Eosinphils 0.1 thou/uL (0.0-0.7); #Lymphocytes 0.6 thou/uL (1.20-3.40); #Monocytes 0.6 thou/uL (0.11-0.59); #Neutrophils 3.5 thou/uL (1.40-6.50); %Basophils 0.2 % (0.0-1.0); %Eosinophils 2.3 % (0.0-10.0); %Lymphocytes 12.4 % (21.0-51.0); %Monocytes 11.9 % (0.0-10.0); %Neutrophils 73.1 % (42.0-75.0); Hemoglobin 14.3 g/dL (14.0-18.0); Mean Corpuscular HGB CONC 31.6 g/dL (32.0-36.0); Mean Corpuscular Hemoglobin 29.7 pg (27.0-31.0); Mean Platelet Volume 7.4 fL (7.4-10.4); Platelet Count 172 thou/uL (130-400); RBC Distribution Width 15.4 % (11.5-14.5); White Blood Cell (WBC) Count 4.7 thou/uL (4.8-10.8)
[2019-06-09 11:10] LABS: Anion Gap 13 mmol/L (10-20); BUN (Urea Nitrogen) 13 mg/dL (8.4-25.7); Calc. Creatinine Clearance 77 mL/min (70-130); Calcium 9.3 mg/dL (7.8-10.44); Carbon Dioxide 27 mmol/L (23-31); Chloride 106 mmol/L (98-107); Estimated GFR-MDRD 69; Glucose 122 mg/dL (80-115); Potassium 3.1 mmol/L (3.5-5.1); Sodium 143 mmol/L (136-145)
--- NOTE | 2019-06-09 11:53 | PDOC.HOSPP ---
- Subjective Subjective: Patient seen and examined. Clinically improving. Breathing more easily. Saturating well on room air. Lower extremity edema improving. Patient is more clear thinking after starting lactulose. Patient has not moved his bowels to the point where is he is having diarrhea yet though. Found have elevated ammonia. - Objective Vital Signs & Weight: Vital Signs (12 hours) Temp Pulse Resp BP BP BP Pulse Ox 06/09/19 10:08 140/50 L 06/09/19 09:27 77 139/83 06/09/19 08:00 97.9 F 76 18 146/87 H 97 06/09/19 04:00 98 F 75 14 127/78 96 Weight Admit Weight 215 lb Weight 198 lb 12.8 oz I&O: 06/08/19 06/09/19 06/10/19 06:59 06:59 06:59 Intake Total 1250 240 Output Total 2810 1125 175 Balance -6745 -6253 65 Result Diagrams: 06/09/19 10:23 06/09/19 10:23 Hospitalist ROS - Review of Systems All other systems reviewed; all pertinent +/- noted in HPI/Subj - Medication Medications: Active Medications Generic Name Dose Route Start Last Admin Trade Name Freq PRN Reason Stop Dose Admin Aspirin 81 mg 06/07/19 09:00 06/09/19 09:27 Aspirin Chewable PO 81 mg DAILY [facility] Administration Carvedilol 3.125 mg 06/07/19 17:00 06/09/19 09:27 Coreg PO 3.125 mg BID-[facility] Administration Docusate Sodium 100 mg 06/07/19 08:51 06/07/19 21:24 Colace PO 100 mg BIDPRN PRN Administration Constipation Famotidine 20 mg 06/07/19 09:00 06/09/19 09:27 Pepcid PO 20 mg BID [facility] Administration Furosemide 40 mg 06/07/19 14:00 06/09/19 05:39 Lasix SLOW IVP 40 mg 0600,1400 [facility] Administration Lactulose 20 gm 06/08/19 17:00 06/09/19 09:27 Lactulose PO 20 gm QID [facility] Administration Lisinopril 2.5 mg 06/07/19 09:00 06/09/19 09:27 Zestril PO 2.5 mg DAILY [facility] Administration - Exam General Appearance: NAD, awake alert Eye: anicteric sclera ENT: normocephalic atraumatic, moist mucosa Neck: supple, symmetric, no lymphadenopathy Heart: no murmur, no gallops, no rubs Respiratory: no wheezes, no ronchi, normal chest expansion, no tachypnea, rales Gastrointestinal: soft, non-tender, normal bowel sounds, no palpable masses, distended Extremities: no clubbing, 2+ LE edema Skin: no lesions, no rashes Neurological: cranial nerve grossly intact, normal sensation to touch, no focal deficits Musculoskeletal: normal tone Psychiatric: normal affect, A&O x 3 Hosp A/P (1) Hepatic encephalopathy Code(s): K72.90 - HEPATIC FAILURE, UNSPECIFIED WITHOUT COMA Status: Acute (2) Increased ammonia level Code(s): R79.89 - OTHER SPECIFIED ABNORMAL FINDINGS OF BLOOD CHEMISTRY Status : Acute (3) Acute on chronic congestive heart failure Code(s): I50.9 - HEART FAILURE, UNSPECIFIED Status: Acute (4) Systolic CHF Code(s): I50.20 - UNSPECIFIED SYSTOLIC (CONGESTIVE) HEART FAILURE Status: Acute (5) Alcoholic cirrhosis of liver Code(s): K70.30 - ALCOHOLIC CIRRHOSIS OF LIVER WITHOUT ASCITES Status: Chronic (6) Nonadherence to medication Code(s): Z91.14 - PATIENT'S OTHER NONCOMPLIANCE WITH MEDICATION REGIMEN Status : Chronic - Plan Plan: cardiology consultation, recommendations appreciated IV Lasix to continue diuresis patient is breathing much easier and is now on room air patient with hepatic encephalopathy, elevated ammonia 113. Mentation improved today Continue lactulose therapy 20 mg four times per day, will plan to hold a single dose for loose stool titrate to diarrhea. Cardiomyopathy regimen as able life vest AICD evaluation in June if the patient can be medically compliant Replace electrolytes as needed will need continued close follow-up in the outpatient setting to avoid future hospitalizations.
--- NOTE | 2019-06-09 17:29 | PDOC.CPN ---
- Subjective Date: 06/09/19 Time: 17:27 Interval history: Doing well. Breathing back to normal. - Review of Systems General: denies: fever/chills, weight/appetite/sleep changes, night sweats, fatigue Respiratory: denies: cough, congestion, shortness of breath, exercise intolerance Cardiovascular: denies: chest pain, palpitation, edema, paroxysmal nocturnal dyspnea, orthopnea Gastrointestinal: denies: nausea, vomiting, diarrhea, constipation, abd pain, GI bleeding Musculoskeletal: denies: pain, tenderness, stiffness, swelling, arthritis/ arthralgias Neurological: denies: numbness, syncope, seizure, weakness - Objective Allergies/Adverse Reactions: Allergies Allergy/AdvReac Type Severity Reaction Status Date / Time No Known Allergies Allergy Verified 03/13/19 03:23 Visit Medications: Current Medications Acetaminophen (Tylenol) 650 mg PO Q4H PRN PRN Reason: Headache/Fever/Mild Pain (1-3) Hydrocodone Bitart/Acetaminophen ([place] 5/325) 1 tab PO Q4H PRN PRN Reason: Moderate Pain (4-6) Hydrocodone Bitart/Acetaminophen ([place] 7.5/325) 1 tab PO Q4H PRN PRN Reason: Severe Pain (7-10) Albuterol/Ipratropium (Duoneb) 3 ml NEB [id number] PRN PRN Reason: SOB &/or Wheezing Aspirin (Aspirin Chewable) 81 mg PO DAILY [facility] Last Admin: 06/09/19 09:27 Dose: 81 mg Benzonatate (Tessalon) 100 mg PO Q4H PRN PRN Reason: Cough Calcium Carbonate (Tums) 1,000 mg PO Q4H PRN PRN Reason: Heartburn or Indigestion Carvedilol (Coreg) 3.125 mg PO BID-[facility] Last Admin: 06/09/19 16:33 Dose: 3.125 mg Diphenhydramine HCl (Benadryl) 25 mg PO Q6H PRN PRN Reason: Itching & Insomnia Docusate Sodium (Colace) 100 mg PO BIDPRN PRN PRN Reason: Constipation Last Admin: 06/07/19 21:24 Dose: 100 mg Famotidine (Pepcid) 20 mg PO BID [facility] Last Admin: 06/09/19 09:27 Dose: 20 mg Furosemide (Lasix) 40 mg PO DAILY-[facility] Hydralazine HCl (Apresoline) 10 mg SLOW IVP Q4H PRN PRN Reason: SBP >/= 180 Lactulose (Lactulose) 20 gm PO QID [facility] Last Admin: 06/09/19 16:32 Dose: 20 gm Lisinopril (Zestril) 2.5 mg PO DAILY [facility] Last Admin: 06/09/19 09:27 Dose: 2.5 mg Ondansetron HCl (Zofran Odt) 4 mg PO Q6H PRN PRN Reason: Nausea/Vomiting Ondansetron HCl (Zofran) 4 mg IVP Q6H PRN PRN Reason: Nausea/Vomiting Polyethylene Glycol (Miralax) 17 gm PO DAILYPRN PRN PRN Reason: Constipation Vital Signs & Weight: Vital Signs Temp Pulse Pulse Pulse Resp BP BP 06/09/19 15:24 98.7 F 70 18 06/09/19 11:52 99.1 F 69 16 06/09/19 10:08 06/09/19 09:27 77 139/83 06/09/19 09:23 77 80 139/83 06/09/19 08:00 97.9 F 76 18 BP BP BP Pulse Ox 06/09/19 15:24 132/75 97 06/09/19 11:52 127/78 97 06/09/19 10:08 140/50 L 06/09/19 09:27 06/09/19 09:23 142/88 H 06/09/19 08:00 146/87 H 97 Admit Weight 215 lb Weight 198 lb 12.8 oz - Quality Measures Condition: Heart Failure CV meds: Beta Rigo: Yes, PRASANTH/ARB: Yes - Physical Exam General: alert & oriented x3, no apparent distress HEENT: mucus membranes moist, normocephaly Neck: supple neck, midline trachea Cardiac: regular rate and rhythm, no murmur Lungs: clear to auscultation, no wheeze, rales, rhonchi Neuro: grossly intact, coordination normal Abdomen: active bowel sounds, soft, non-tender Skin: clear Musculoskeletal: normal range of motion, no pain - Labs Result Diagrams: 06/09/19 10:23 06/09/19 10:23 Troponin/CKMB CK-MB (CK-2) 2.5 ng/mL (0-6.6) 06/06/19 22:32 Troponin I 0.053 ng/mL (< 0.028) H 06/07/19 04:19 - Telemetry Sinus rhythms and dysrhythmias: sinus rhythm - Assessment/Plan Assessment/Plan: 1. Acute on chronic systolic heart failure. 2. Non ischemic CM EF at 10-15% 3. Hx of alcohol use quit 2 months ago 4. Hx of alcoholic cirrhosis per pt report. 5. AMS, high ammonia level PLAN: - Switch to PO lasix. - The plan was to re evaluate with echo on next visit in the office in June and if LV function remained low would recommend an AICD. - Will Continue this plan as he has to be 3 months out before an AICD is recommended. - Better with Lactulose. - From cardiac perspective january D/C home tomorrow.
[2019-06-10] MEDS: Carvedilol 3.125 MG TAB PO SCH ×2 (08:15→16:43)
[2019-06-10] MEDS: Lisinopril 2.5 MG TAB PO SCH (08:15)
[2019-06-10] MEDS: Famotidine 20 MG TAB PO SCH ×2 (08:15→20:15)
[2019-06-10] MEDS: Aspirin Chewable 81 MG TAB PO SCH (08:16)
[2019-06-10] MEDS: Furosemide 40 MG TAB PO SCH (08:16)
[2019-06-10 09:11] LABS: Hemoglobin 13.2 g/dL (14.0-18.0); Mean Corpuscular HGB CONC 32.1 g/dL (32.0-36.0); Mean Corpuscular Hemoglobin 30.3 pg (27.0-31.0); Mean Corpuscular Volume 94.4 fL (78.0-98.0); Mean Platelet Volume 7.3 fL (7.4-10.4); Platelet Count 156 thou/uL (130-400); RBC Distribution Width 15.3 % (11.5-14.5); Red Blood Cell (RBC) Count 4.35 mill/uL (4.70-6.10); White Blood Cell (WBC) Count 3.6 thou/uL (4.8-10.8)
[2019-06-10 09:23] LABS: ALT (SGPT) 17 U/L (8-55); AST (SGOT) 19 U/L (5-34); Albumin 3.2 g/dL (3.4-4.8); Alkaline Phosphatase 110 U/L (40-110); Anion Gap 11 mmol/L (10-20); BUN (Urea Nitrogen) 13 mg/dL (8.4-25.7); Bilirubin, Total 1.7 mg/dL (0.2-1.2); Calc. Creatinine Clearance 88 mL/min (70-130); Calcium 8.6 mg/dL (7.8-10.44); Carbon Dioxide 27 mmol/L (23-31); Chloride 107 mmol/L (98-107); Estimated GFR-MDRD 82; Globulin 3.2 g/dL (2.4-3.5); Glucose 117 mg/dL (80-115); Magnesium 2.1 mg/dL (1.6-2.6); Phosphorus 3.2 mg/dL (2.3-4.7); Potassium 3.2 mmol/L (3.5-5.1); Protein, Total 6.4 g/dL (5.8-8.1); Sodium 142 mmol/L (136-145)
[2019-06-10] MEDS ORDERED: Potassium Chloride 20 MEQ TAB PO SCH (10:00)
[2019-06-10 10:22] LABS: Eosinophils 9 % (0-10); Lymphocytes 18 % (21-51); MDiff Complete? YES; Monocytes 7 % (0-10); Neutrophil 65 % (42-75); RBC Morphology Normal
--- NOTE | 2019-06-10 13:46 | PDOC.HOSPP ---
- Subjective Encounter Date: 06/10/19 Encounter Time: 08:30 Subjective: Patient seen and examined. No new complaints. No overnight events - Objective Vital Signs & Weight: Vital Signs (12 hours) Temp Pulse Resp BP Pulse Ox 06/10/19 11:06 98.9 F 68 18 122/78 100 06/10/19 08:11 99.4 F 66 18 126/78 98 06/10/19 03:21 97.8 F 68 18 133/79 99 Weight Admit Weight 215 lb Weight 196 lb 8 oz I&O: 06/09/19 06/10/19 06/11/19 06:59 06:59 06:59 Intake Total 1536 Output Total 1125 475 Balance -1125 1061 Result Diagrams: 06/10/19 08:51 06/10/19 08:51 EKG Reviewed by me: Yes Hospitalist ROS - Review of Systems ENT: denies: ear pain, ear discharge, nose pain, nose discharge, nose congestion , mouth pain, mouth swelling, throat pain, throat swelling, other Respiratory: denies: cough, dry, shortness of breath, hemoptysis, SOB with excertion, pleuritic pain, sputum, wheezing, other Cardiovascular: denies: chest pain, palpitations, orthopnea, paroxysmal noc. dyspnea, edema, light headedness, other Gastrointestinal: denies: nausea, vomiting, abdominal pain, diarrhea, constipation, melena, hematochezia, other Genitourinary: denies: dysuria, frequency, incontinence, hematuria, retention, other Musculoskeletal: denies: neck pain, shoulder pain, arm pain, back pain, hand pain, leg pain, foot pain, other Skin: denies: rash, lesions, yaritza, bruising, other - Medication Medications: Active Medications Generic Name Dose Route Start Last Admin Trade Name Freq PRN Reason Stop Dose Admin Aspirin 81 mg 06/07/19 09:00 06/10/19 08:16 Aspirin Chewable PO 81 mg DAILY [facility] Administration Carvedilol 3.125 mg 06/07/19 17:00 06/10/19 08:15 Coreg PO 3.125 mg BID-WM [facility] Administration Docusate Sodium 100 mg 06/07/19 08:51 06/07/19 21:24 Colace PO 100 mg BIDPRN PRN Administration Constipation Famotidine 20 mg 06/07/19 09:00 06/10/19 08:15 Pepcid PO 20 mg BID [facility] Administration Furosemide 40 mg 06/10/19 07:30 06/10/19 08:16 Lasix PO 40 mg DAILY-[facility] Administration Lactulose 20 gm 06/08/19 17:00 06/10/19 08:15 Lactulose PO 20 gm QID [facility] Administration Lisinopril 2.5 mg 06/07/19 09:00 06/10/19 08:15 Zestril PO 2.5 mg DAILY [facility] Administration - Exam General Appearance: NAD, awake alert Eye: PERRL, anicteric sclera ENT: normocephalic atraumatic, no oropharyngeal lesions Neck: supple, symmetric, no JVD Heart: RRR, no murmur, no gallops Respiratory: CTAB, no wheezes, no rales, no ronchi Gastrointestinal: soft, non-tender, non-distended, normal bowel sounds Extremities: no cyanosis, no clubbing Skin: normal turgor, no lesions Neurological: cranial nerve grossly intact, normal sensation to touch, no focal deficits Musculoskeletal: normal tone, normal strength Psychiatric: normal affect, normal behavior Hosp A/P (1) Acute on chronic combined systolic and diastolic ACC/AHA stage C congestive heart failure Code(s): I50.43 - ACUTE ON CHRONIC COMBINED SYSTOLIC AND DIASTOLIC HRT FAIL Status: Acute (2) Hypokalemia Code(s): E87.6 - HYPOKALEMIA Status: Acute (3) Type [address] elevation Code(s): I21.A1 - MYOCARDIAL INFARCTION TYPE 2 Status: Acute (4) Hepatic encephalopathy Code(s): K72.90 - HEPATIC FAILURE, UNSPECIFIED WITHOUT COMA Status: Acute (5) Alcoholic cirrhosis of liver Code(s): K70.30 - ALCOHOLIC CIRRHOSIS OF LIVER WITHOUT ASCITES Status: Chronic Qualifiers: Ascites presence: with ascites Qualified Code(s): K70.31 - Alcoholic cirrhosis of liver with ascites (6) Nonadherence to medication Code(s): Z91.14 - PATIENT'S OTHER NONCOMPLIANCE WITH MEDICATION REGIMEN Status : Chronic - Plan old records reviewed/req 06/10/19- BNP has improved, continue oral lasix, his ammonia has not changed, continue lactulose and add rifaximin, replace potassium, repeat labs tomorrow medication reviewed as above, symptomatic treatment, cardiology recommendation noted and appreciated
--- NOTE | 2019-06-10 18:01 | PDOC.CPN ---
- Subjective Date: 06/10/19 Time: 17:59 Interval history: He is doing well. No chest pain. Breathing back to normal. - Review of Systems General: denies: fever/chills, weight/appetite/sleep changes, night sweats, fatigue Respiratory: denies: cough, congestion, shortness of breath, exercise intolerance Cardiovascular: denies: chest pain, palpitation, edema, paroxysmal nocturnal dyspnea, orthopnea Gastrointestinal: denies: nausea, vomiting, diarrhea, constipation, abd pain, GI bleeding Musculoskeletal: denies: pain, tenderness, stiffness, swelling, arthritis/ arthralgias Neurological: denies: numbness, syncope, seizure, weakness - Objective Allergies/Adverse Reactions: Allergies Allergy/AdvReac Type Severity Reaction Status Date / Time No Known Allergies Allergy Verified 03/13/19 03:23 Visit Medications: Current Medications Acetaminophen (Tylenol) 650 mg PO Q4H PRN PRN Reason: Headache/Fever/Mild Pain (1-3) Hydrocodone Bitart/Acetaminophen ([facility] 5/325) 1 tab PO Q4H PRN PRN Reason: Moderate Pain (4-6) Hydrocodone Bitart/Acetaminophen ([facility] 7.5/325) 1 tab PO Q4H PRN PRN Reason: Severe Pain (7-10) Albuterol/Ipratropium (Duoneb) 3 ml NEB [id number] PRN PRN Reason: SOB &/or Wheezing Aspirin (Aspirin Chewable) 81 mg PO DAILY [facility] Last Admin: 06/10/19 08:16 Dose: 81 mg Benzonatate (Tessalon) 100 mg PO Q4H PRN PRN Reason: Cough Calcium Carbonate (Tums) 1,000 mg PO Q4H PRN PRN Reason: Heartburn or Indigestion Carvedilol (Coreg) 3.125 mg PO BID-WM [facility] Last Admin: 06/10/19 16:43 Dose: 3.125 mg Diphenhydramine HCl (Benadryl) 25 mg PO Q6H PRN PRN Reason: Itching & Insomnia Docusate Sodium (Colace) 100 mg PO BIDPRN PRN PRN Reason: Constipation Last Admin: 06/07/19 21:24 Dose: 100 mg Famotidine (Pepcid) 20 mg PO BID [facility] Last Admin: 06/10/19 08:15 Dose: 20 mg Furosemide (Lasix) 40 mg PO DAILY-AC [facility] Last Admin: 06/10/19 08:16 Dose: 40 mg Hydralazine HCl (Apresoline) 10 mg SLOW IVP Q4H PRN PRN Reason: SBP >/= 180 Lactulose (Lactulose) 20 gm PO QID [facility] Last Admin: 06/10/19 16:43 Dose: 20 gm Lisinopril (Zestril) 2.5 mg PO DAILY [facility] Last Admin: 06/10/19 08:15 Dose: 2.5 mg Ondansetron HCl (Zofran Odt) 4 mg PO Q6H PRN PRN Reason: Nausea/Vomiting Ondansetron HCl (Zofran) 4 mg IVP Q6H PRN PRN Reason: Nausea/Vomiting Polyethylene Glycol (Miralax) 17 gm PO DAILYPRN PRN PRN Reason: Constipation Rifaximin (Xifaxan) 550 mg PO BID [facility] Sodium Chloride (Flush - Normal Saline) 10 ml IVF Q12HR [facility] Sodium Chloride (Flush - Normal Saline) 10 ml IVF PRN PRN PRN Reason: Saline Flush Vital Signs & Weight: Vital Signs Temp Pulse Pulse Pulse Resp BP BP 06/10/19 16:40 98.9 F 66 18 06/10/19 15:22 77 76 134/91 H 123/83 06/10/19 13:20 66 72 126/83 128/86 06/10/19 11:06 98.9 F 68 18 06/10/19 08:11 99.4 F 66 18 BP Pulse Ox 06/10/19 16:40 124/79 98 06/10/19 15:22 06/10/19 13:20 06/10/19 11:06 122/78 100 06/10/19 08:11 126/78 98 Admit Weight 215 lb Weight 196 lb 8 oz - Quality Measures Condition: Heart Failure CV meds: Beta Rigo: Yes, PRASANTH/ARB: Yes - Physical Exam General: alert & oriented x3, no apparent distress HEENT: mucus membranes moist, normocephaly Neck: supple neck, midline trachea Cardiac: regular rate and rhythm, no murmur Lungs: clear to auscultation, no wheeze, rales, rhonchi Neuro: grossly intact, coordination normal Abdomen: active bowel sounds, soft, non-tender Skin: clear Musculoskeletal: normal range of motion, no pain - Labs Result Diagrams: 06/10/19 08:51 06/10/19 08:51 Troponin/CKMB CK-MB (CK-2) 2.5 ng/mL (0-6.6) 06/06/19 22:32 Troponin I 0.053 ng/mL (< 0.028) H 06/07/19 04:19 - Telemetry Sinus rhythms and dysrhythmias: sinus rhythm - Assessment/Plan Assessment/Plan: 1. Acute on chronic systolic heart failure. 2. Non ischemic CM EF at 10-15% 3. Hx of alcohol use quit 2 months ago 4. Hx of alcoholic cirrhosis per pt report. 5. AMS, high ammonia level PLAN: - On PO lasix. - May discharge home at any time from cardiac perspective. - Already scheduled to have follow up and echo to decide on AICD. - Will sign off. Please call with any questions.
[2019-06-10] MEDS: Rifaximin 550 MG TAB PO SCH (20:15)
[2019-06-11] MEDS: Furosemide 40 MG TAB PO SCH (08:27)
[2019-06-11 08:29] LABS: Anion Gap 11 mmol/L (10-20); BUN (Urea Nitrogen) 12 mg/dL (8.4-25.7); Calc. Creatinine Clearance 102 mL/min (70-130); Calcium 8.9 mg/dL (7.8-10.44); Carbon Dioxide 25 mmol/L (23-31); Chloride 109 mmol/L (98-107); Estimated GFR-MDRD Greater than 90; Glucose 108 mg/dL (80-115); Potassium 3.5 mmol/L (3.5-5.1); Sodium 141 mmol/L (136-145)
[2019-06-11] MEDS: Aspirin Chewable 81 MG TAB PO SCH (08:58)
[2019-06-11] MEDS: Carvedilol 3.125 MG TAB PO SCH ×2 (08:58→16:30)
[2019-06-11] MEDS: Famotidine 20 MG TAB PO SCH ×2 (08:58→20:49)
[2019-06-11] MEDS: Lisinopril 2.5 MG TAB PO SCH (08:58)
[2019-06-11] MEDS: Rifaximin 550 MG TAB PO SCH ×2 (09:02→20:48)
--- NOTE | 2019-06-11 10:13 | PDOC.HOSPP ---
- Subjective Encounter Date: 06/11/19 Encounter Time: 07:40 Subjective: Patient seen and examined. No new complaints. No overnight events ammonia still high - Objective Vital Signs & Weight: Vital Signs (12 hours) Temp Pulse Resp BP Pulse Ox 06/11/19 07:20 98.1 F 64 16 129/80 96 06/11/19 03:26 98.6 F 68 18 127/76 96 Weight Admit Weight 215 lb Weight 194 lb 6.4 oz I&O: 06/10/19 06/11/19 06/12/19 06:59 06:59 06:59 Intake Total 1536 1300 Output Total 475 1500 Balance 1061 -200 Result Diagrams: 06/10/19 08:51 06/11/19 08:09 EKG Reviewed by me: Yes Hospitalist ROS - Review of Systems ENT: denies: ear pain, ear discharge, nose pain, nose discharge, nose congestion , mouth pain, mouth swelling, throat pain, throat swelling, other Respiratory: denies: cough, dry, shortness of breath, hemoptysis, SOB with excertion, pleuritic pain, sputum, wheezing, other Cardiovascular: denies: chest pain, palpitations, orthopnea, paroxysmal noc. dyspnea, edema, light headedness, other Gastrointestinal: denies: nausea, vomiting, abdominal pain, diarrhea, constipation, melena, hematochezia, other Genitourinary: denies: dysuria, frequency, incontinence, hematuria, retention, other Musculoskeletal: denies: neck pain, shoulder pain, arm pain, back pain, hand pain, leg pain, foot pain, other Skin: denies: rash, lesions, yaritza, bruising, other - Medication Medications: Active Medications Generic Name Dose Route Start Last Admin Trade Name Freq PRN Reason Stop Dose Admin Aspirin 81 mg 06/07/19 09:00 06/11/19 08:58 Aspirin Chewable PO 81 mg DAILY [facility] Administration Carvedilol 3.125 mg 06/07/19 17:00 06/11/19 08:58 Coreg PO 3.125 mg BID-WM [facility] Administration Docusate Sodium 100 mg 06/07/19 08:51 06/07/19 21:24 Colace PO 100 mg BIDPRN PRN Administration Constipation Famotidine 20 mg 06/07/19 09:00 06/11/19 08:58 Pepcid PO 20 mg BID [facility] Administration Furosemide 40 mg 06/10/19 07:30 06/11/19 08:27 Lasix PO 40 mg DAILY-AC [facility] Administration Lisinopril 2.5 mg 06/07/19 09:00 06/11/19 08:58 Zestril PO 2.5 mg DAILY [facility] Administration Rifaximin 550 mg 06/10/19 21:00 06/11/19 09:02 Xifaxan PO 550 mg BID [facility] Administration Sodium Chloride 10 ml 06/10/19 21:00 06/11/19 09:01 Flush - Normal Saline IVF 10 ml Q12HR [facility] Administration - Exam General Appearance: NAD, awake alert Eye: PERRL ENT: normocephalic atraumatic, no oropharyngeal lesions Neck: supple, symmetric, no JVD, no thyromegaly Heart: RRR, no murmur, no gallops, no rubs Respiratory: CTAB, no wheezes, no rales, no ronchi Gastrointestinal: soft, non-tender, non-distended, normal bowel sounds Extremities: no cyanosis, no clubbing, no edema Skin: normal turgor, no lesions Neurological: cranial nerve grossly intact, normal sensation to touch, no weakness, no focal deficits Musculoskeletal: normal tone, normal strength Psychiatric: normal affect, normal behavior Hosp A/P (1) Acute on chronic combined systolic and diastolic ACC/AHA stage C congestive heart failure Code(s): I50.43 - ACUTE ON CHRONIC COMBINED SYSTOLIC AND DIASTOLIC HRT FAIL Status: Acute Plan: controlled and euvolemic, now NYHA stage 2 (2) Hypokalemia Code(s): E87.6 - HYPOKALEMIA Status: Acute (3) Type [address] elevation Code(s): I21.A1 - MYOCARDIAL INFARCTION TYPE 2 Status: Acute (4) Hepatic encephalopathy Code(s): K72.90 - HEPATIC FAILURE, UNSPECIFIED WITHOUT COMA Status: Acute (5) Alcoholic cirrhosis of liver Code(s): K70.30 - ALCOHOLIC CIRRHOSIS OF LIVER WITHOUT ASCITES Status: Chronic Qualifiers: Ascites presence: with ascites Qualified Code(s): K70.31 - Alcoholic cirrhosis of liver with ascites (6) Nonadherence to medication Code(s): Z91.14 - PATIENT'S OTHER NONCOMPLIANCE WITH MEDICATION REGIMEN Status : Chronic - Plan old records reviewed/req 06/10/19- BNP has improved, continue oral lasix, his ammonia has not changed, continue lactulose and add rifaximin, replace potassium, repeat labs tomorrow medication reviewed as above, symptomatic treatment, cardiology recommendation noted and appreciated 06/11- high ammonia is concerning for discharge as high risk for bounse back, will increase lactulose 30 gm po qid, recheck ammonia tomorrow, medication reviewed as above, symptomatic treatment., currently on optimum medical therapy for CHF
[2019-06-12] MEDS: Furosemide 40 MG TAB PO SCH (08:09)
[2019-06-12] MEDS: Rifaximin 550 MG TAB PO SCH (08:09)
[2019-06-12] MEDS: Aspirin Chewable 81 MG TAB PO SCH (08:09)
[2019-06-12] MEDS: Famotidine 20 MG TAB PO SCH (08:09)
[2019-06-12] MEDS: Carvedilol 3.125 MG TAB PO SCH (08:09)
[2019-06-12] MEDS: Lisinopril 2.5 MG TAB PO SCH (08:10)
--- NOTE | 2019-06-12 10:29 | PDOC.HOSPP ---
- Subjective Encounter Date: 06/12/19 Encounter Time: 09:00 Subjective: Patient seen and examined. No new complaints. No overnight events - Objective Vital Signs & Weight: Vital Signs (12 hours) Temp Pulse Resp BP Pulse Ox 06/12/19 07:30 97.9 F 71 14 137/85 98 06/12/19 03:41 98 06/12/19 03:37 97.9 F 67 18 131/84 98 Weight Admit Weight 215 lb Weight 192 lb 12.8 oz I&O: 06/11/19 06/12/19 06/13/19 06:59 06:59 06:59 Intake Total 1300 960 Output Total 1500 825 Balance -200 135 Result Diagrams: 06/10/19 08:51 06/11/19 08:09 EKG Reviewed by me: Yes Hospitalist ROS - Review of Systems ENT: denies: ear pain, ear discharge, nose pain, nose discharge, nose congestion , mouth pain, mouth swelling, throat pain, throat swelling, other Respiratory: denies: cough, dry, shortness of breath, hemoptysis, SOB with excertion, pleuritic pain, sputum, wheezing, other Cardiovascular: denies: chest pain, palpitations, orthopnea, paroxysmal noc. dyspnea, edema, light headedness, other Gastrointestinal: denies: nausea, vomiting, abdominal pain, diarrhea, constipation, melena, hematochezia, other Genitourinary: denies: dysuria, frequency, incontinence, hematuria, retention, other Musculoskeletal: denies: neck pain, shoulder pain, arm pain, back pain, hand pain, leg pain, foot pain, other Skin: denies: rash, lesions, yaritza, bruising, other - Medication Medications: Active Medications Generic Name Dose Route Start Last Admin Trade Name Freq PRN Reason Stop Dose Admin Aspirin 81 mg 06/07/19 09:00 06/12/19 08:09 Aspirin Chewable PO 81 mg DAILY [facility] Administration Carvedilol 3.125 mg 06/07/19 17:00 06/12/19 08:09 Coreg PO 3.125 mg BID-WM [facility] Administration Docusate Sodium 100 mg 06/07/19 08:51 06/07/19 21:24 Colace PO 100 mg BIDPRN PRN Administration Constipation Famotidine 20 mg 06/07/19 09:00 06/12/19 08:09 Pepcid PO 20 mg BID [facility] Administration Furosemide 40 mg 06/10/19 07:30 06/12/19 08:09 Lasix PO 40 mg DAILY-AC [facility] Administration Lactulose 30 gm 06/11/19 13:00 06/12/19 08:10 Lactulose PO 30 gm QID [facility] Administration Lisinopril 2.5 mg 06/07/19 09:00 06/12/19 08:10 Zestril PO 2.5 mg DAILY [facility] Administration Rifaximin 550 mg 06/10/19 21:00 06/12/19 08:09 Xifaxan PO 550 mg BID [facility] Administration Sodium Chloride 10 ml 06/10/19 21:00 06/12/19 08:10 Flush - Normal Saline IVF 10 ml Q12HR [facility] Administration - Exam General Appearance: NAD, awake alert Eye: PERRL, anicteric sclera ENT: normocephalic atraumatic, no oropharyngeal lesions Neck: supple, symmetric, no JVD Heart: RRR, no murmur, no gallops, no rubs Respiratory: CTAB, no wheezes, no rales, no ronchi Gastrointestinal: soft, non-tender, non-distended, normal bowel sounds Extremities: no cyanosis, no clubbing, no edema Skin: normal turgor, no lesions, no rashes Neurological: cranial nerve grossly intact, no focal deficits Musculoskeletal: normal tone, normal strength Psychiatric: normal affect, normal behavior Hosp A/P (1) Acute on chronic combined systolic and diastolic ACC/AHA stage C congestive heart failure Code(s): I50.43 - ACUTE ON CHRONIC COMBINED SYSTOLIC AND DIASTOLIC HRT FAIL Status: Acute (2) Hypokalemia Code(s): E87.6 - HYPOKALEMIA Status: Acute (3) Type [address] elevation Code(s): I21.A1 - MYOCARDIAL INFARCTION TYPE 2 Status: Acute (4) Hepatic encephalopathy Code(s): K72.90 - HEPATIC FAILURE, UNSPECIFIED WITHOUT COMA Status: Acute (5) Alcoholic cirrhosis of liver Code(s): K70.30 - ALCOHOLIC CIRRHOSIS OF LIVER WITHOUT ASCITES Status: Chronic Qualifiers: Ascites presence: with ascites Qualified Code(s): K70.31 - Alcoholic cirrhosis of liver with ascites (6) Nonadherence to medication Code(s): Z91.14 - PATIENT'S OTHER NONCOMPLIANCE WITH MEDICATION REGIMEN Status : Chronic - Plan old records reviewed/req 06/10/19- BNP has improved, continue oral lasix, his ammonia has not changed, continue lactulose and add rifaximin, replace potassium, repeat labs tomorrow medication reviewed as above, symptomatic treatment, cardiology recommendation noted and appreciated 06/11- high ammonia is concerning for discharge as high risk for bounse back, will increase lactulose 30 gm po qid, recheck ammonia tomorrow, medication reviewed as above, symptomatic treatment., currently on optimum medical therapy for CHF 06/12/19- will discharge today, medication reviewed as above, symptomatic treatment
[2019-06-12 11:37] VITALS: BP 133/89; TEMP 97.8
--- NOTE | 2019-06-12 12:01 | DIS ---
DATE OF ADMISSION: 06/07/2019 DATE OF DISCHARGE: 06/12/2019 [facility] DIS[facility]: Home. PRIMARY DISCHARGE DIAGNOSES: 1. Acute on chronic combined systolic and diastolic heart failure. 2. Hepatic encephalopathy. 3. Hypokalemia. 4. Non-ST elevation myocardial infarction type 2 due to demand ischemia from congestive heart failure. SECONDARY DISCHARGE DIAGNOSES: 1. Medication noncompliance. 2. History of alcoholism. 3. Alcoholic cirrhosis of liver. 4. Chronic systolic and diastolic heart failure. PRIMARY PROCEDURE/OPERATION: None. RADIOLOGIST INVESTIGATION: Chest x-ray showed pulmonary vascular congestion. SIGNIFICANT LABORATORY DATA: WBC 3.6, hemoglobin 13.2, platelet 156. Sodium 141, potassium 3.5, BUN 12, creatinine 0.95, ammonia 66. BNP 499. DISCHARGE MEDICATIONS: 1. Amiodarone 200 mg p.o. daily. 2. Lisinopril 2.5 mg daily. 3. Coreg 3.125 mg p.o. b.i.d. 4. Aspirin 81 mg daily. 5. Lasix 40 mg daily. 6. Lactulose 30 g p.o. q.i.d. to keep bowel movement 3-4 daily. 7. Potassium chloride 20 mEq p.o. daily. CONTRAINDICATION: None. CODE STATUS: Full code. INPATIENT LEAD APPLIER: Dr. Benitez was consulted while in hospital. TEST RESULTS PENDING ON DISCHARGE: None. ALLERGIES: NO KNOWN DRUG ALLERGIES. DISCHARGE PLAN: Post hospital, the patient will follow up with Dr. Benitez on June 16, 2019. At that time, the patient will have repeat echocardiography. The patient will follow up with primary care physician on June 16, 2019. HOSPITAL COURSE: A 63-year-old male with above-mentioned medical problem, who was admitted by Dr. Reagan. Please see his H and P for further details. On admission, he was having increasing shortness of breath. He has cardiomyopathy with EF 10%. He has nonischemic cardiomyopathy. He was admitted for acute on chronic systolic and diastolic heart failure exacerbation. On admission, he was also having elevated ammonia level and hepatic encephalopathy. Both conditions treated with IV Lasix initially and subsequently changed to p.o. Lasix for CHF upon euvolemic status. Regarding hyperammonemia, we treated him with lactulose and rifaximin while in hospital. His ammonia level improved to normal. Cardiology cleared him for discharge. This patient will need outpatient evaluation for AICD. The patient already has appointment with primary care physician and Cardiology. He is back to his normal level. We provided patient education about heart failure as well as fluid restriction as well as salt restriction and medication compliance education given. The patient is seen and examined at bedside today. Please see my progress note from today for further detail. The patient is medically stable for discharge today. Job ID: [id number]
== END 2019-06-12 12:01 | disposition home or self-care (01) | DRG 441 ==
LOC: ERS 21:29 → 2NO 06-07 01:49 → OBSVTOIN 06-07 01:49
PROVIDERS: ADMIT Hospitalist; ATTEND Hospitalist
DX: K72.00 Acute and subacute hepatic failure without coma (principal); I21.A1 Myocardial infarction type 2; I50.43 Acute on chronic combined systolic (congestive) and diastolic (congestive) heart failure; F10.288 Alcohol dependence with other alcohol-induced disorder; I42.0 Dilated cardiomyopathy; I42.6 Alcoholic cardiomyopathy; I11.0 Hypertensive heart disease with heart failure; E87.6 Hypokalemia; K70.31 Alcoholic cirrhosis of liver with ascites; Z79.82 Long term (current) use of aspirin; Z79.899 Other long term (current) drug therapy; Z91.14 Patient's other noncompliance with medication regimen
CPT/HCPCS: 36415; 71045; 80048; 80053; 82140; 82553; 83735; 83880; 84100; 84439; 84443; 84481; 84484; 85025; 90471; 90732; 93005; 93798; 94760; 96374; G0009; J1940

== ENCOUNTER 2024-10-14 21:29 | Emergency (ER) | payer OTHER, MEDICAID ==
[~2024-10-14 21:29] MED LIST: Iopamidol-370 76% 500 ML MDV (1 ML CHARGE) ONE
== END 2024-10-15 00:51 | disposition home or self-care (01) ==
LOC: ERS 21:29
DX: J18.9 Pneumonia, unspecified organism (principal); I11.0 Hypertensive heart disease with heart failure; I50.9 Heart failure, unspecified; I25.10 Atherosclerotic heart disease of native coronary artery without angina pectoris
CPT/HCPCS: 71045; 71260; Q9967